=== PATIENT | female | born 1990 | race Caucasian/White ===

== ENCOUNTER 2017-03-10 21:19 | Inpatient (IN) | payer OTHER ==
[2017-03-10] MEDS ORDERED: LET GEL TOPICAL 1 EA SYR TP ONE (22:00)
--- NOTE | 2017-03-10 22:20 | EDPHY ---
H & P Source: Patient Time Seen by Provider: 03/10/17 22:19 HPI/ROS: HPI CHIEF COMPLAINT: M1 hold, self-inflicted arm lacerations, suicidal ideation HISTORY OF PRESENT ILLNESS: This patient very pleasant 18-year-old female she does have significant past medical history for bipolar disorder and depression, she is followed by outpatient psychiatry, she presents emergency room on M1 hold by BPD, she had self-inflicted lacerations to or in her forearms bilaterally with a razor blade. She tells me the purpose of this was to harm herself and to commit suicide. She is feeling suicidal. She is feeling worsening depression. She does take bipolar medications and pressure medication she has been compliant with this. She denies any drug ingestion or any other self-harm. Of note patient has lacerations on her distal forearms bilaterally that have sutures in place she tells me that 1 was self-inflicted on left arm on the right arm she was breaking up her dog from a dog fight sustained another laceration. These both were repaired at urgent care. She is on Augmentin. She now has new laceration self-inflicted. 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 Exam Constitutional appears well nontoxic triage nursing summary reviewed, vital signs reviewed, awake/alert. Eyes normal conjunctivae and sclera, EOMI, PERRLA. HENT normal inspection, atraumatic, moist mucus membranes, no epistaxis, neck supple/ no meningismus, no raccoon eyes. Respiratory clear to auscultation bilaterally, normal breath sounds, no respiratory distress, no wheezing. Cardiovascular rate normal, regular rhythm, no murmur, no edema, distal pulses normal. Gastrointestinal soft, non-tender, no rebound, no guarding, normal bowel sounds, no distension, no pulsatile mass. Genitourinary no CVA tenderness. Musculoskeletal no midline vertebral tenderness, full range of motion, no calf swelling, no tenderness of extremities, no meningismus, good pulses, neurovascularly intact. Skin bilateral forearms: There vertical oriented single lacerations present approximately 7 cm in length, also of note distally on bilateral forearms there is fresh recent lacerations that were sutured at an urgent care she tells me, pink, warm, & dry, no rash, skin atraumatic. Neurologic awake, alert and oriented x 3, AAOx3, moves all 4 extremities equally, motor intact, sensory intact, CN II-XII intact, normal cerebellar, normal vision, normal speech. Psychiatric flat affect Heme/Lymph/Immune no lymphadenopathy. Differential Diagnosis: Includes but is not limited to in a particular order, bipolar disorder, depression, suicidal ideation, mood disorder Medical Decision Making: Plan for this patient she will need her wounds cleaned and irrigated and then sutured closed. She will need mental health evaluation. She will need medical clearance. Blood work will be drawn for medical clearance. Re-evaluation: Laceration Repair Procedure: Verbal Consent was obtained, Under sterile conditions, The patient had lidocaine with epinephrine used approximately 7 ccs to local anesthetize the left forearm 7 cm vertical Laceration. The wound was copiously irrigated with sterile fluid, the wound was explored for foreign bodies there were none visualized, the wound was explored with a sterile glove to the base. There are no deep structures involved, including no arterial injury. 6 interrupted 6.O PROLENE Sutures were placed in this patient's laceration. She had good close approximation of the wound edges. She Tolerated this well. Laceration Repair Procedure: Verbal Consent was obtained, Under sterile conditions, The patient had lidocaine with epinephrine used approximately 7ccs to local anesthetize the 7cm Vertical Laceration. The wound was copiously irrigated with sterile fluid, the wound was explored for foreign bodies there were none visualized, the wound was explored with a sterile glove to the base. There are no deep structures involved, including no arterial injury. 6 interrupted 6.O Prolene Sutures were placed in this patient's laceration. She had good close approximation of the wound edges. She Tolerated this well. 0649AM: No acute events overnight. Patient needs inpatient psychiatric placement. Patient has been evaluated. Bed search is in place. (Nicola Coppola) Constitutional: Initial Vital Signs Temperature (C) 36.7 C 03/10/17 21:19 Heart Rate 63 03/10/17 21:19 Respiratory Rate 16 03/10/17 21:19 Blood Pressure 119/79 03/10/17 21:19 O2 Sat (%) 98 05/19/17 21:19 O2 Delivery Mode Room Air Allergies/Adverse Reactions: bee venom protein (honey bee) Allergy (Verified 03/11/17 12:29) grass pollen-perennial rye, standar Allergy (Verified 03/11/17 12:29) pollen extracts Allergy (Verified 03/11/17 12:28) Home Medications: Medication Instructions Recorded Levothyroxine [Synthroid 25 mcg 25 mcg PO DAILY06 03/10/17 (*)] buPROPion XL [Wellbutrin Xl] 300 mg PO DAILY 03/10/17 clonazePAM [Klonopin (*)] 0.5 mg PO TID 03/10/17 lamOTRIGine [Lamotrigine] 100 mg PO DAILY 03/10/17 EPINEPHrine [Epipen 0.3 MG] 0.3 mg IM ONCE PRN 03/11/17 Medical Decision Making Other Provider: I assumed care of the patient at 7:00 a.m. pending psychiatric placement. The patient was accepted for inpatient psychiatric hospitalization at [facility]. Patient has been transferred to our unit for further inpatient care (Joe Rodrigues) - Data Points Laboratory Results: Laboratory Results 03/10/17 21:00 03/10/17 21:00 03/10/17 21:00 Total Bilirubin 0.9 mg/dL mg/dL (0.1-1.4) Conjugated Bilirubin 0.5 mg/dL mg/dL (0.0-0.5) Unconjugated Bilirubin 0.4 mg/dL mg/dL (0.0-1.1) AST 33 IU/L IU/L (14-46) ALT 33 IU/L IU/L (9-52) Alkaline Phosphatase 63 IU/L IU/L (38-126) Total Protein 9.2 g/dL H g/dL (6.3-8.2) Albumin 5.2 g/dL H g/dL (3.5-5.0) TSH 2.430 uIU/mL uIU/mL (0.465-4.680) Medications Given: Discontinued Medications Acetaminophen (Tylenol) 1,000 mg PO EDNOW ONE Stop: 03/11/17 04:21 Last Admin: 03/11/17 04:30 Dose: 1,000 mg Ibuprofen (Motrin) 600 mg PO EDNOW ONE Stop: 03/11/17 04:21 Last Admin: 03/11/17 04:30 Dose: 600 mg Lorazepam (Ativan) 1 mg PO EDNOW ONE Stop: 03/10/17 23:53 Last Admin: 03/11/17 00:10 Dose: 1 mg Lorazepam (Ativan) 1 mg PO EDNOW ONE Stop: 03/11/17 04:21 Last Admin: 03/11/17 04:30 Dose: 1 mg Departure - Departure Disposition: [facility] IP Clinical Impression: Suicidal ideation, Laceration Depression Qualifiers: Depression Type: unspecified Qualified Code(s): F32.9 - Major depressive disorder, single episode, unspecified Condition: Fair
[2017-03-10 22:32] LABS: % IMMATURE GRANULYOCYTES 0.4 % (0.0-1.1); ABSOLUTE IMMATURE GRANULOCYTES 0.03 10^3/uL (0.00-0.10); ADD DIFF? NO; ADD MORPH? NO; ADD SCAN? NO; ATYPICAL LYMPHOCYTE FLAG 30 (0-99); FRAGMENT RBC FLAG 0 (0-99); HEMOGLOBIN 16.2 g/dL (12.6-16.3); LEFT SHIFT FLG 0 (0-99); LIPEMIA HEMOLYSIS FLAG 90 (0-99); MEAN CELL HEMOGLOBIN 34.4 pg (27.9-34.1); MEAN CELL HEMOGLOBIN CONCENTR. 35.2 g/dL (32.4-36.7); MEAN CELL VOLUME 97.7 fL (81.5-99.8); MEAN PLATELET VOLUME 11.8 fL (8.7-11.7); PLATELET CLUMPS FLAG 0 (0-99); PLATELET COUNT 264 10^3/uL (150-400); RED BLOOD CELL COUNT 4.71 10^6/uL (4.18-5.33); RED CELL DISTRIBUTION WIDTH 11.5 % (11.5-15.2)
[2017-03-10 22:39] LABS: ANION GAP 12 mEq/L (8-16); CALCIUM 10.1 mg/dL (8.5-10.4); CARBON DIOXIDE 27 mEq/l (22-31); CHLORIDE 103 mEq/L (97-110); ETHANOL SERUM < 10 mg/dL (0-10); GLOMERULAR FILTRATION RATE > 60; GLUCOSE 83 mg/dL (70-100); POTASSIUM 4.2 mEq/L (3.5-5.2); SALICYLATE < 1.0 mg/dL (2.0-20.0); SODIUM 142 mEq/L (134-144)
[2017-03-10] MEDS ORDERED: LORazepam 1 MG TAB PO ONE (23:52)
[2017-03-11 04:18] LABS: ALBUMIN 5.2 g/dL (3.5-5.0); BILIRUBIN,TOTAL 0.9 mg/dL (0.1-1.4); BILIRUBIN-CONJUGATED 0.5 mg/dL (0.0-0.5); BILIRUBIN-UNCONJUGATED 0.4 mg/dL (0.0-1.1); TOTAL PROTEIN 9.2 g/dL (6.3-8.2)
[2017-03-11] MEDS ORDERED: LORazepam 1 MG TAB PO ONE (04:20)
[2017-03-11] MEDS ORDERED: IBUPROFEN 600 MG TAB PO ONE (04:20)
[2017-03-11] MEDS ORDERED: ACETAMINOPHEN 500 MG TAB PO ONE (04:20)
[2017-03-11] MEDS ORDERED: NICOTINE POLACRILEX 2 MG GUM B PRN (11:53)
[2017-03-11] MEDS ORDERED: MAGNESIUM HYDROXIDE 30 ML UDCUP PO PRN (11:53)
[2017-03-11] MEDS ORDERED: MAG HYDROX/AL HYDROX/SIMETH 30 ML UDCUP PO PRN (11:53)
[2017-03-11] MEDS ORDERED: ACETAMINOPHEN 325 MG TAB PO PRN (11:53)
[2017-03-11] MEDS ORDERED: lamoTRIgine 100 MG TAB PO SCH (12:15)
[2017-03-11] MEDS ORDERED: ACETAMINOPHEN 500 MG TAB PO PRN (12:19)
[2017-03-11] MEDS: IBUPROFEN 600 MG TAB PO PRN (13:29)
[2017-03-11] MEDS: clonazePAM 0.5 MG TAB PO SCH ×2 (15:56→20:28)
[2017-03-11] MEDS: HYDROCORTISONE 1% CREAM TP PRN (20:28)
--- NOTE | 2017-03-11 22:12 | SOAPPROG ---
SOAP Progress Note Assessment/Plan: Assessment: 26yo CF with hx of depr/anxiety/BMD II admitted for 1st psych inpt s/p planned SA with lethal intent by HAKAN poole in tub after 3pg detailed suicide note in context of several recent on chronic traumas and more acute stressors as precipitant, after rehearsed cutting a few days earlier Interviewed at length. Continues to regret not succeeding in suicide attempt. Denies plan/intent to harm self in hosp, feels 1:1 would even worsen her anxiety she has already about being hospitalized. Will start on suicide precautions SP-1, cont 72hr MHH, unit restriction No acute subst use issues although with +fhx Etoh, and smokes some THC nightly with +Utox THC in ER Resume home meds, pt agreed to increase Lamictal from 100mg to 150mg qam Dx BMD II, depressed, severe Anxiety d/o, unspecified, r/o PTSD r/o Major Depr D/O s/p bilat self-inflicted forearm lacerations Admission Behavioral Health Dictation to follow. Objective: Vital Signs Temp Pulse Resp BP Pulse Ox 36.3 C 65 16 121/65 H 96 03/11/17 20:41 03/11/17 09:52 03/11/17 20:41 03/11/17 20:41 03/11/17 20:41 - Time Spent With Patient Time Spent With Patient: 90min - Pending Discharge Pending Discharge Within 24 Hours: No Pending Discharge Within 48 Hours: No ICD10 Worksheet Patient Problems: Problems Problem Status Onset Depression Acute Laceration Acute Suicidal ideation Acute
[2017-03-12] MEDS ORDERED: LEVOTHYROXINE 25 MCG TAB PO SCH ×2 (06:00→10:00)
[2017-03-12] MEDS ORDERED: buPROPion XL 150 MG TAB PO SCH (09:00)
[2017-03-12] MEDS: lamoTRIgine 100 MG TAB PO SCH (09:01)
[2017-03-12] MEDS: clonazePAM 0.5 MG TAB PO SCH ×3 (09:01→20:28)
[2017-03-12] MEDS: IBUPROFEN 600 MG TAB PO PRN ×2 (09:02→20:41)
[2017-03-12] MEDS: HYDROCORTISONE 1% CREAM TP PRN (09:03)
--- NOTE | 2017-03-12 09:58 | GCON ---
[f rep st] CONSULTATION DATE OF CONSULTATION: 03/12/2017 HISTORY OF PRESENT ILLNESS: The patient is a pleasant 26-year-old female with a history of depressi on and anxiety who presents to the ER a couple nights ago with bipolar disorder and cutting behavior . She had sutures placed in the ER. When I speak with her, she denies other significant medical problems. She has hypothyroidism and mi graine. She has identified her triggers. She is pleasant and conversant. She denies recent fever, chills, cough, shortness of breath, nausea, vomiting, diarrhea. She denies drinking heavy alcohol. REVIEW OF SYSTEMS: Complete 10-point review of systems conducted and negative, except as in HPI. PAST MEDICAL HISTORY: 1. Bipolar. 2. Hypothyroidism. 3. Migraines. 4. Triggers are chocolate, red wine, soy sauce. 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 Tri-athlete. FAMILY HISTORY: Notable for cancer and diabetes. ALLERGIES: Bee venom, grass, pollen extracts. HOME MEDICATIONS: Lamotrigine, clonazepam, bupropion, levothyroxine, and EpiPen. PHYSICAL EXAM: VITAL SIGNS: Temp 36.7, blood pressure 115/61, pulse 67, breathing 14 times a minut e, 97% on room air. GENERAL: No acute distress. HEENT: Sclerae anicteric. Oropharynx clear. Mu cous membranes moist. NECK: Supple without lymphadenopathy or JVD. LUNGS: Clear to auscultation bilaterally. HEART: S1, S2. ABDOMEN: Soft, nontender, nondistended. LOWER EXTREMITIES: Without edema. Calves nontender. SKIN: Without rash. NEUROLOGIC: Nonfocal. FOREARMS: Show bilateral i ncisions; on the right forearm there is one incision that is sutured, clean, dry and intact without fluctuance or erythema; there is one that is Steri-Stripped that is clean, dry, intact without fluct uance or erythema. On the left, there are 2 sutured incisions that are clean, dry and intact withou t fluctuance or erythema. Her flexor tendons are intact bilaterally without pain with forced flexio n of her fingers. There is no lymphangitic streaking. LABORATORY DATA: Labs on presentation: White count 8.3, hematocrit 46, platelets are 264,000. Chem-7 normal. LFTs normal. Beta hCG is negative. Tox screen is negative for marijuana. There is no imaging. I discussed the case with Dr. Stephanie Blanc. ASSESSMENT/PLAN: This is a 26-year-old female with bipolar, here with cutting behavior. 1. Incisions: These are clean, dry and intact. The sutures were placed on Monday the ey should be removed somewhere between Monday the and Monday the . This can be done by a nurse at the bedside with a suture removal kit. 2. Bipolar: Management per Psych. 3. Hypothyroidism: Continue her levothyroxine, as you have. 4. Disposition: Per Psych. Thank you for this consultation. Hospital Medicine will not follow. /[id number]/MODL
[2017-03-12] MEDS: ESCITALOPRAM OXALATE 10 MG TAB PO SCH (16:54)
[2017-03-12] MEDS: LORazepam 0.5 MG TAB PO PRN (22:08)
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
[2017-03-13] MEDS ORDERED: LEVOTHYROXINE 25 MCG TAB PO SCH (06:45)
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
[2017-03-13] MEDS: lamoTRIgine 100 MG TAB PO SCH (08:38)
[2017-03-13] MEDS: clonazePAM 0.5 MG TAB PO SCH ×3 (08:40→21:45)
[2017-03-13] MEDS: ESCITALOPRAM OXALATE 10 MG TAB PO SCH (08:41)
[2017-03-13] MEDS: IBUPROFEN 600 MG TAB PO PRN ×2 (08:52→17:39)
[2017-03-13] MEDS ORDERED: buPROPion XL 150 MG TAB PO SCH (09:00)
[2017-03-13] MEDS ORDERED: SUMAtriptan 25 MG TAB PO ONE (14:45)
[2017-03-13] MEDS ORDERED: SUMAtriptan 50 MG TAB PO SCH (14:45)
[2017-03-13] MEDS ORDERED: SUMAtriptan 25 MG TAB PO SCH (15:00)
[2017-03-13] MEDS ORDERED: EPIPEN IM PRN ×2 (15:08→15:12)
[2017-03-13] MEDS: LORazepam 0.5 MG TAB PO PRN (19:58)
[2017-03-14] MEDS: IBUPROFEN 600 MG TAB PO PRN ×2 (03:39→14:43)
[2017-03-14] MEDS: LORazepam 0.5 MG TAB PO PRN ×2 (03:52→16:31)
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
[2017-03-14] MEDS ORDERED: SUMAtriptan 50 MG TAB PO ONE (08:20)
[2017-03-14] MEDS: ESCITALOPRAM OXALATE 10 MG TAB PO SCH (08:22)
[2017-03-14] MEDS: lamoTRIgine 100 MG TAB PO SCH (08:23)
[2017-03-14] MEDS: LEVOTHYROXINE 25 MCG TAB PO SCH (08:25)
[2017-03-14] MEDS: clonazePAM 0.5 MG TAB PO SCH ×3 (08:25→20:15)
[2017-03-14] MEDS ORDERED: SUMAtriptan 25 MG TAB PO ONE (09:15)
[2017-03-14] MEDS: buPROPion XL 150 MG TAB PO SCH (10:42)
--- NOTE | 2017-03-14 12:43 | SOAPPROG ---
SOAP Progress Note Assessment/Plan: Assessment: Lacerations, sutures. OK to remove sutures from older lacerations. Plan: 03/14/17 12:42 Subjective: ATSP re sutures one week ago. Also has more recent sutures. Objective: Vital Signs Temp Pulse Resp BP Pulse Ox 36.6 C 60 16 137/92 H 95 03/14/17 06:00 03/14/17 06:00 03/14/17 06:00 03/14/17 06:00 03/14/17 06:00 Physical Exam - Physical Exam Skin: other (Each wrist with 2 lacerations, older and newer. Older fully approximated and closed. Newer with eschar.) ICD10 Worksheet Patient Problems: Problems Problem Status Onset Depression Acute Laceration Acute Suicidal ideation Acute
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
[2017-03-14] MEDS ORDERED: SUMAtriptan 25 MG TAB PO PRN (14:44)
[2017-03-15] MEDS: lamoTRIgine 100 MG TAB PO SCH (08:26)
[2017-03-15] MEDS: clonazePAM 0.5 MG TAB PO SCH ×3 (08:28→20:05)
[2017-03-15] MEDS: ESCITALOPRAM OXALATE 10 MG TAB PO SCH (08:28)
[2017-03-15] MEDS: buPROPion XL 150 MG TAB PO SCH (08:28)
[2017-03-15] MEDS: LEVOTHYROXINE 25 MCG TAB PO SCH (08:38)
[2017-03-15] MEDS: IBUPROFEN 600 MG TAB PO PRN (14:40)
[2017-03-16] MEDS: LORazepam 0.5 MG TAB PO PRN ×2 (00:29→21:18)
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
[2017-03-16] MEDS: lamoTRIgine 100 MG TAB PO SCH (08:09)
[2017-03-16] MEDS: ESCITALOPRAM OXALATE 10 MG TAB PO SCH (08:10)
[2017-03-16] MEDS: clonazePAM 0.5 MG TAB PO SCH ×3 (08:12→21:18)
[2017-03-16] MEDS: buPROPion XL 150 MG TAB PO SCH (08:13)
[2017-03-16] MEDS: LEVOTHYROXINE 25 MCG TAB PO SCH (08:19)
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
[2017-03-16] MEDS ORDERED: PRAZOSIN HCL 1 MG CAP PO SCH (21:00)
[2017-03-17] MEDS: LORazepam 0.5 MG TAB PO PRN ×2 (06:10→23:18)
[2017-03-17] MEDS: clonazePAM 0.5 MG TAB PO SCH ×3 (09:01→20:47)
[2017-03-17] MEDS: lamoTRIgine 100 MG TAB PO SCH (10:32)
[2017-03-17] MEDS: LEVOTHYROXINE 25 MCG TAB PO SCH (10:33)
[2017-03-17] MEDS: ESCITALOPRAM OXALATE 10 MG TAB PO SCH (10:34)
[2017-03-17] MEDS: buPROPion XL 150 MG TAB PO SCH (10:35)
[2017-03-17] MEDS: IBUPROFEN 600 MG TAB PO PRN (16:07)
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
[2017-03-17] MEDS: traZODone 50 MG TAB PO SCH (20:47)
[2017-03-17] MEDS: traZODone 50 MG TAB PO PRN (23:18)
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
[2017-03-18] MEDS: ESCITALOPRAM OXALATE 10 MG TAB PO SCH (08:41)
[2017-03-18] MEDS: buPROPion XL 150 MG TAB PO SCH (08:41)
[2017-03-18] MEDS: clonazePAM 0.5 MG TAB PO SCH ×4 (08:42→20:09)
[2017-03-18] MEDS: lamoTRIgine 100 MG TAB PO SCH (08:42)
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
[2017-03-18] MEDS: LEVOTHYROXINE 25 MCG TAB PO SCH (10:56)
[2017-03-18] MEDS ORDERED: PRAZOSIN HCL 1 MG CAP PO SCH (11:00)
[2017-03-18] MEDS ORDERED: PRAZOSIN HCL 1 MG CAP PO ONE (11:45)
[2017-03-18] MEDS: traZODone 50 MG TAB PO PRN (20:09)
[2017-03-18] MEDS: PRAZOSIN HCL 1 MG CAP PO SCH (20:09)
[2017-03-18] MEDS: traZODone 50 MG TAB PO SCH (20:09)
[2017-03-18] MEDS: LORazepam 0.5 MG TAB PO PRN (20:09)
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
[2017-03-19] MEDS: ESCITALOPRAM OXALATE 10 MG TAB PO SCH (09:29)
[2017-03-19] MEDS: LEVOTHYROXINE 25 MCG TAB PO SCH (09:29)
[2017-03-19] MEDS: buPROPion XL 150 MG TAB PO SCH (09:30)
[2017-03-19] MEDS: clonazePAM 0.5 MG TAB PO SCH ×3 (09:30→21:06)
[2017-03-19] MEDS: lamoTRIgine 100 MG TAB PO SCH (09:31)
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
[2017-03-19] MEDS: IBUPROFEN 600 MG TAB PO PRN (15:02)
[2017-03-19] MEDS: HYDROCORTISONE 1% CREAM TP PRN (18:25)
[2017-03-19] MEDS: LORazepam 0.5 MG TAB PO PRN (21:05)
[2017-03-19] MEDS: PRAZOSIN HCL 1 MG CAP PO SCH (21:06)
[2017-03-19] MEDS: traZODone 50 MG TAB PO SCH (21:06)
[2017-03-19] MEDS: traZODone 50 MG TAB PO PRN (21:06)
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
[2017-03-20] MEDS: ESCITALOPRAM OXALATE 10 MG TAB PO SCH (08:57)
[2017-03-20] MEDS: clonazePAM 0.5 MG TAB PO SCH ×3 (08:57→20:25)
[2017-03-20] MEDS: buPROPion XL 150 MG TAB PO SCH (08:58)
[2017-03-20] MEDS: lamoTRIgine 100 MG TAB PO SCH (08:58)
[2017-03-20] MEDS: LEVOTHYROXINE 25 MCG TAB PO SCH (11:09)
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
[2017-03-20] MEDS: traZODone 50 MG TAB PO SCH (20:25)
[2017-03-20] MEDS: PRAZOSIN HCL 1 MG CAP PO SCH (20:25)
[2017-03-20] MEDS: LORazepam 0.5 MG TAB PO PRN (20:28)
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
[2017-03-21 06:37] VITALS: RESP 12
[2017-03-21 07:55] VITALS: BP 106/63; PULSE 72; TEMP 97.6; O2SAT 96
[2017-03-21] MEDS: ESCITALOPRAM OXALATE 10 MG TAB PO SCH (10:19)
[2017-03-21] MEDS: buPROPion XL 150 MG TAB PO SCH (10:20)
[2017-03-21] MEDS: clonazePAM 0.5 MG TAB PO SCH (10:20)
[2017-03-21] MEDS: lamoTRIgine 100 MG TAB PO SCH (10:21)
[2017-03-21] MEDS: LEVOTHYROXINE 25 MCG TAB PO SCH (10:24)
[2017-03-21] MEDS ORDERED: HYDROCORTISONE 1% CREAM TP PRN (12:53)
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
== END 2017-03-21 15:15 | disposition home or self-care (01) | DRG 885 ==
LOC: EDUNIT# → EDBD → BBEH 03-11 09:56
PROVIDERS: ADMIT Psychiatry & Neurology Psychiatry; ATTEND Psychiatry & Neurology Psychiatry
PROC: 0HQEXZZ Repair Left Lower Arm Skin, External Approach (ICD-10-PCS; principal; 2017-03-11)
PROC: 0HQDXZZ Repair Right Lower Arm Skin, External Approach (ICD-10-PCS; principal; 2017-03-11)
DX: F33.9 Major depressive disorder, recurrent, unspecified (principal); F43.10 Post-traumatic stress disorder, unspecified; T14.91 Suicide attempt; S61.512A Laceration without foreign body of left wrist, initial encounter; S61.511A Laceration without foreign body of right wrist, initial encounter; E03.9 Hypothyroidism, unspecified; G43.909 Migraine, unspecified, not intractable, without status migrainosus; X58.XXXA Exposure to other specified factors, initial encounter
CPT/HCPCS: 80305; G0480

== ENCOUNTER 2017-05-09 12:41 | Emergency (ER) | payer OTHER ==
--- NOTE | 2017-05-09 12:49 | EDPHY ---
H & P HPI/ROS: HPI CHIEF COMPLAINT: M1 hold, depression HISTORY OF PRESENT ILLNESS: This patient is a 26-year-old female , significant past medical history for self-inflicted cutting, and depression, presents emergency room by ambulance on M1 hold after she was seen evaluated by her mental health counselor. She is having a bad day she tells me in feels very depressed. Had thoughts of suicide earlier but no specific plan. Past Medical History: Depression Past Surgical History: No recent surgical history Social History: Denies daily use of drugs alcohol tobacco products. Family History: Noncontributory ROS REVIEW OF SYSTEMS: A comprehensive 10 point review of systems is otherwise negative aside from elements mentioned in the history of present illness. Exam Constitutional triage nursing summary reviewed, vital signs reviewed, awake/ alert. Eyes normal conjunctivae and sclera, EOMI, PERRLA. HENT normal inspection, atraumatic, moist mucus membranes, no epistaxis, neck supple/ no meningismus, no raccoon eyes. Respiratory clear to auscultation bilaterally, normal breath sounds, no respiratory distress, no wheezing. Cardiovascular rate normal, regular rhythm, no murmur, no edema, distal pulses normal. Gastrointestinal soft, non-tender, no rebound, no guarding, normal bowel sounds, no distension, no pulsatile mass. Genitourinary no CVA tenderness. Musculoskeletal no midline vertebral tenderness, full range of motion, no calf swelling, no tenderness of extremities, no meningismus, good pulses, neurovascularly intact. Skin pink, warm, & dry, no rash, skin atraumatic. Neurologic awake, alert and oriented x 3, AAOx3, moves all 4 extremities equally, motor intact, sensory intact, CN II-XII intact, normal cerebellar, normal vision, normal speech. Psychiatric tearful, flat affect Heme/Lymph/Immune no lymphadenopathy. Differential Diagnosis: Includes but is not limited to in a particular order depression, suicidal ideation, major depressive disorder Medical Decision Making: Plan for this patient she is on M1 hold she will need medical clearance with blood draw, and mental evaluation. Re-evaluation: 163: This patient has been evaluated by [facility]. Patient is medically cleared. They do not feel that this patient is to remain on M1 hold she is not suicidal. She contracts for safety. She would like to be discharged home. She has a safe environment and good follow-up plan in place. Source: Patient, EMS - Medical/Surgical History Hx Asthma: No Hx Chronic Respiratory Disease: No Hx Diabetes: No Hx Cardiac Disease: No Hx Renal Disease: No Hx Cirrhosis: No Hx Alcoholism: No Hx HIV/AIDS: No Hx Splenectomy or Spleen Trauma: No Other PMH: anxiety, depression, hypothyroidism, seasonal allergies - Social History Smoking Status: Never smoked Constitutional: Initial Vital Signs Temperature (C) 37.1 C 05/09/17 12:56 Heart Rate 82 05/09/17 12:56 Respiratory Rate 18 05/09/17 12:56 Blood Pressure 126/90 H 05/09/17 12:56 O2 Sat (%) 95 05/09/17 12:56 O2 Delivery Mode Room Air Allergies/Adverse Reactions: bee venom protein (honey bee) Allergy (Verified 03/11/17 12:29) grass pollen-perennial rye, standar Allergy (Verified 03/11/17 12:29) pollen extracts Allergy (Verified 03/11/17 12:28) Home Medications: Medication Instructions Recorded EPINEPHrine [Epipen 0.3 MG] 0.3 mg IM ONCE PRN #7 syr 03/21/17 Escitalopram Oxalate [Lexapro 10 5 mg PO DAILY #14 tab 03/21/17 MG] Hydrocortisone 1% [Hydrocortisone 1 kelsey TP BID PRN #60 cream 03/21/17 1% cream (*)] Levothyroxine [Synthroid 25 mcg 25 mcg PO DAILY06 #30 tab 03/21/17 (*)] Prazosin HCl [Minipress 1mg (*)] 2 mg PO HS #60 cap 03/21/17 SUMAtriptan [Imitrex 25 MG (*)] 100 mg PO DAILY PRN #30 tab 03/21/17 buPROPion XL [Wellbutrin 150mg XL] 300 mg PO DAILY #60 tab 03/21/17 clonazePAM [Klonopin (*)] 0.5 mg PO TID #90 tab 03/21/17 lamoTRIgine [LamICTAL 100 MG (*)] 150 mg PO DAILY #45 tab 03/21/17 traZODone [traZODONE 50MG (*)] 50 mg PO HS #30 tab 03/21/17 Medical Decision Making - Data Points Laboratory Results: Laboratory Results 05/09/17 13:17 05/09/17 13:17 05/09/17 05/09/17 05/09/17 14:30 13:17 13:17 WBC RBC Hgb Hct MCV MCH MCHC RDW Plt Count MPV Neut % (Auto) Lymph % (Auto) [place] % (Auto) Eos % (Auto) Baso % (Auto) Nucleat RBC Rel Count Absolute Neuts (auto) Absolute Lymphs (auto) Absolute Monos (auto) Absolute Eos (auto) Absolute Basos (auto) Absolute Nucleated RBC Immature Gran % Immature Gran # Sodium 143 mEq/L mEq/L (134-144) Potassium 4.2 mEq/L mEq/L (3.5-5.2) Chloride 108 mEq/L mEq/L (97-110) Carbon Dioxide 22 mEq/l mEq/l (22-31) Anion Gap 13 mEq/L mEq/L (8-16) BUN 11 mg/dL mg/dL (7-23) Creatinine 1.0 mg/dL mg/dL (0.6-1.0) Estimated GFR > 60 Glucose 84 mg/dL mg/dL (70-100) Calcium 9.7 mg/dL mg/dL (8.5-10.4) Beta HCG, Qual NEGATIVE Salicylates < 1.0 mg/dL L mg/dL (2.0-20.0) Urine Opiates Screen NEGATIVE (NEGATIVE) Acetaminophen < 10 mcg/mL L mcg/mL (10.0-30.0) Urine Barbiturates NEGATIVE (NEGATIVE) Ur Phencyclidine Scrn NEGATIVE (NEGATIVE) Ur Amphetamine Screen NEGATIVE (NEGATIVE) U Benzodiazepines Scrn NEGATIVE (NEGATIVE) Urine Cocaine Screen NEGATIVE (NEGATIVE) U Marijuana (THC) Screen NON-NEGATIVE H (NEGATIVE) Ethyl Alcohol < 10 mg/dL mg/dL (0-10) 05/09/17 13:17 WBC 8.39 10^3/uL 10^3/uL (3.80-9.50) RBC 4.37 10^6/uL 10^6/uL (4.18-5.33) Hgb 14.8 g/dL g/dL (12.6-16.3) Hct 43.3 % % (38.0-47.0) MCV 99.1 fL fL (81.5-99.8) MCH 33.9 pg pg (27.9-34.1) MCHC 34.2 g/dL g/dL (32.4-36.7) RDW 12.8 % % (11.5-15.2) Plt Count 291 10^3/uL 10^3/uL (150-400) MPV 10.8 fL fL (8.7-11.7) Neut % (Auto) 54.6 % % (39.3-74.2) Lymph % (Auto) 35.9 % % (15.0-45.0) [place] % (Auto) 7.9 % % (4.5-13.0) Eos % (Auto) 0.6 % % (0.6-7.6) Baso % (Auto) 0.5 % % (0.3-1.7) Nucleat RBC Rel Count 0.0 % % (0.0-0.2) Absolute Neuts (auto) 4.59 10^3/uL 10^3/uL (1.70-6.50) Absolute Lymphs (auto) 3.01 10^3/uL H 10^3/uL (1.00-3.00) Absolute Monos (auto) 0.66 10^3/uL 10^3/uL (0.30-0.80) Absolute Eos (auto) 0.05 10^3/uL 10^3/uL (0.03-0.40) Absolute Basos (auto) 0.04 10^3/uL 10^3/uL (0.02-0.10) Absolute Nucleated RBC 0.00 10^3/uL 10^3/uL (0-0.01) Immature Gran % 0.5 % % (0.0-1.1) Immature Gran # 0.04 10^3/uL 10^3/uL (0.00-0.10) Sodium Potassium Chloride Carbon Dioxide Anion Gap BUN Creatinine Estimated GFR Glucose Calcium Beta HCG, Qual Salicylates Urine Opiates Screen Acetaminophen Urine Barbiturates Ur Phencyclidine Scrn Ur Amphetamine Screen U Benzodiazepines Scrn Urine Cocaine Screen U Marijuana (THC) Screen Ethyl Alcohol Medications Given: Discontinued Medications Lorazepam (Ativan) 1 mg PO EDNOW ONE Stop: 05/09/17 13:07 Last Admin: 05/09/17 13:15 Dose: 1 mg Departure - Departure Disposition: Home, Routine, Self-Care Clinical Impression: Depression Qualifiers: Depression Type: major depressive disorder Major depression recurrence: single episode Active/Remission status: currently active Major depression episode severity: mild Qualified Code(s): F32.0 - Major depressive disorder, single episode, mild Condition: Good Instructions: Depression (ED) Additional Instructions: 1. Return emergency room if you have worsening symptoms includes worsening depression and thoughts of hurting herself or anybody else or thoughts of suicide. Please return immediately to the emergency room. Referrals: Patient,NotPresent [Unknown] - As per Instructions
[2017-05-09 13:06] VITALS: BP 126/90; PULSE 82; RESP 18; TEMP 98.8; O2SAT 95
[2017-05-09] MEDS ORDERED: LORazepam 1 MG TAB PO ONE ×2 (13:06→16:42)
[2017-05-09 13:25] LABS: % IMMATURE GRANULYOCYTES 0.5 % (0.0-1.1); ABSOLUTE IMMATURE GRANULOCYTES 0.04 10^3/uL (0.00-0.10); ADD DIFF? NO; ADD MORPH? NO; ADD SCAN? NO; ATYPICAL LYMPHOCYTE FLAG 10 (0-99); FRAGMENT RBC FLAG 0 (0-99); HEMATOCRIT 43.3 % (38.0-47.0); HEMOGLOBIN 14.8 g/dL (12.6-16.3); LEFT SHIFT FLG 0 (0-99); LIPEMIA HEMOLYSIS FLAG 90 (0-99); MEAN CELL HEMOGLOBIN 33.9 pg (27.9-34.1); MEAN CELL HEMOGLOBIN CONCENTR. 34.2 g/dL (32.4-36.7); MEAN CELL VOLUME 99.1 fL (81.5-99.8); MEAN PLATELET VOLUME 10.8 fL (8.7-11.7); PLATELET CLUMPS FLAG 0 (0-99); PLATELET COUNT 291 10^3/uL (150-400); RED BLOOD CELL COUNT 4.37 10^6/uL (4.18-5.33); RED CELL DISTRIBUTION WIDTH 12.8 % (11.5-15.2)
[2017-05-09 13:45] LABS: ANION GAP 13 mEq/L (8-16); CALCIUM 9.7 mg/dL (8.5-10.4); CARBON DIOXIDE 22 mEq/l (22-31); CHLORIDE 108 mEq/L (97-110); ETHANOL SERUM < 10 mg/dL (0-10); GLOMERULAR FILTRATION RATE > 60; GLUCOSE 84 mg/dL (70-100); POTASSIUM 4.2 mEq/L (3.5-5.2); SALICYLATE < 1.0 mg/dL (2.0-20.0); SODIUM 143 mEq/L (134-144)
== END 2017-05-09 17:10 | disposition home or self-care (01) ==
LOC: EDUNIT#
DX: F32.0 Major depressive disorder, single episode, mild (principal)
CPT/HCPCS: 80305; G0480

== ENCOUNTER 2017-06-07 16:00 | Inpatient (IN) | payer OTHER ==
[2017-06-07] MEDS ORDERED: NS 1,000 ML IV ONE (16:07)
--- NOTE | 2017-06-07 16:11 | EDPHY ---
H & P Source: Patient Exam Limitations: No limitations - Personal History Tetanus Vaccine Date: 2009 - Medical/Surgical History Hx Asthma: No Hx Chronic Respiratory Disease: No Hx Diabetes: No Hx Cardiac Disease: No Hx Renal Disease: No Hx Cirrhosis: No Hx Alcoholism: No Hx HIV/AIDS: No Hx Splenectomy or Spleen Trauma: No Other PMH: anxiety, depression, hypothyroidism, seasonal allergies - Family History Significant Family History: No pertinent family hx - Social History Smoking Status: Never smoked Alcohol Use: Occasionally Drug Use: Other Time Seen by Provider: 06/07/17 16:00 HPI/ROS: CHIEF COMPLAINT: Suicide attempt HISTORY OF PRESENT ILLNESS: The patient is a 26-year-old female who is brought in by EMS for suicide attempt. She texted friends telling them that she was going to trying to kill herself. They could not get a hold of her and so called police who found her unresponsive with bilateral arm lacerations. She admitted to EMS that she took 20 tablets of trazodone, 20 tablets of 0.5 Klonopin and 20 tablets of aspirin. She tells me that she did not know when she did this but sometime this afternoon. She has not vomited. EMS reports that she had a moderate response to 2 mg of Narcan. She has 6 cm lacerations to both forearms palmar aspect with moderate bleeding but no arterial bleeding. Normal range of motion and sensation and pulses distally. REVIEW OF SYSTEMS: Unable to obtain secondary to condition EXAM: GENERAL: Somnolecent, arousable HEAD: Atraumatic, normocephalic. EYES: Pupils equal round and reactive to light, extraocular movements intact, sclera anicteric, conjunctiva are normal. ENT: TMs normal, nares patent, oropharynx clear without exudates. Moist mucous membranes. NECK: Normal range of motion, supple without lymphadenopathy or JVD. LUNGS: Breath sounds clear to auscultation bilaterally and equal. No wheezes rales or rhonchi. HEART: Regular rate and rhythm without murmurs, rubs or gallops. ABDOMEN: Soft, nontender, normoactive bowel sounds. No guarding, no rebound. No masses appreciated. BACK: No CVA tenderness, no spinal tenderness, step-offs or deformities EXTREMITIES: Laceration see below NEUROLOGICAL: Cranial nerves II through XII grossly intact. Normal speech, normal gait. 5/5 strength, normal movement in all extremities, normal sensation PSYCH: Somnolecent, minimal response to questioning SKIN: 6 cm lacerations to both forearms over palmar aspect. Into the fatty tissue. No obvious tendon or vascular injury seen with examination through full range of motion. Normal pulses and capillary refill distally. (Josue Hooker) Constitutional: Initial Vital Signs Heart Rate 61 06/07/17 16:14 Respiratory Rate 14 06/07/17 16:14 Blood Pressure 116/77 06/07/17 16:14 O2 Sat (%) 99 06/07/17 16:14 O2 Delivery Mode Room Air Allergies/Adverse Reactions: bee venom protein (honey bee) Allergy (Verified 03/11/17 12:29) grass pollen-perennial rye, standar Allergy (Verified 03/11/17 12:29) pollen extracts Allergy (Verified 03/11/17 12:28) Home Medications: Medication Instructions Recorded EPINEPHrine [Epipen 0.3 MG] 0.3 mg IM ONCE PRN #7 syr 03/21/17 Hydrocortisone 1% [Hydrocortisone 1 kelsey TP BID PRN #60 cream 03/21/17 1% cream (*)] Levothyroxine [Synthroid 25 mcg 25 mcg PO DAILY06 #30 tab 03/21/17 (*)] Prazosin HCl [Minipress 1mg (*)] 2 mg PO HS #60 cap 03/21/17 SUMAtriptan [Imitrex 25 MG (*)] 100 mg PO DAILY PRN #30 tab 03/21/17 buPROPion XL [Wellbutrin 150mg XL] 300 mg PO DAILY #60 tab 03/21/17 clonazePAM [Klonopin (*)] 0.5 mg PO TID #90 tab 03/21/17 traZODone [traZODONE 50MG (*)] 50 mg PO HS #30 tab 03/21/17 ARIPiprazole [Abilify 5 mg (*)] 5 mg PO DAILY 06/07/17 Escitalopram Oxalate [Lexapro 10 20 mg PO DAILY 06/08/17 MG] lamoTRIgine [Lamictal] 300 mg PO DAILY 06/08/17 Medical Decision Making - Diagnostics EKG Interpretation: An EKG obtained and was read and documented in trace view. Please see trace view for full reading and report. Sinus rhythm, no acute ischemic changes or interval abnormalities (Josue Hooker) Procedures: I was asked by Dr. Josue Hooker to the where the lacerations on the patient's upper extremities. Laceration repair #1. Verbal consent was obtained from the patient. The 6 cm laceration on the right volar forearm was anesthetized using 1% lidocaine with epinephrine. The wound was irrigated with saline, draped and explored to its base with a gloved finger. There were no deep structures involved. No tendon injury was identified. The wound was repaired with 4 0 Ethilon, 11 sutures. The wound repair was complex. The procedure was performed by myself. Laceration repair #2. Verbal consent was obtained from the patient. The 6 cm laceration on the left volar forearm was anesthetized using 1% lidocaine with epinephrine. The wound was irrigated with saline, draped and explored to its base with a gloved finger. There were no deep structures involved. No tendon injury was identified. The wound was repaired with 4 0 Ethilon, 11 sutures. The wound repair was complex. The procedure was performed by myself. Laceration repair #3. Verbal consent was obtained from the patient. The 2 cm forearm laceration on the location was anesthetized using 1% lidocaine with epinephrine. The wound was irrigated with saline, draped and explored to its base with a gloved finger. There were no deep structures involved. No tendon injury was identified. The wound was repaired with 4 0 Ethilon, 2 sutures. The wound repair was simple. The procedure was performed by myself. (Adamaris Solorzano) ED Course/Re-evaluation: 4:45 p.m. I discussed the case with poison Control. They suggest a cm and half in level every 2 hours looking for a peak and decline. If she has greater than 30 we should start a bicarb drip. They recommend observation for 6 hours after the ingestion of trazodone for serotonin syndrome type symptoms or seizures. If sicker to treat with benzodiazepines. Patient currently has stable vital signs and is somnolecent but easily arousable. Poison Control [id number] 6:10 p.m. the patient remains somnolecent with stable vital signs. No signs of serotonin syndrome. Her aspirin level is elevated but not greater than 30. I will recheck it. I have discussed the case with Dr. uptake who will admit to the ICU. The patient is on an M1 hold placed by police. (Josue Hooker) Differential Diagnosis: Partial list of the Differential diagnosis considered include but were not limited to; overdose, laceration, suicidality, depression and although unlikely based on the history and physical exam, I also considered infection, foreign body, head injury. (Josue Hooker) Critical Care Time: Critical care time spent by meDr. Hooker exclusive with this patient was 35 minutes, exclusive of the PA time exclusive of procedures. The organ system that was at risk was cardiovascular and GI and I gave diagnosis, treatment, consultation and admission to prevent worsening of the patient's condition ( Josue Hooker) - Data Points Laboratory Results: Laboratory Results 06/07/17 16:50 06/07/17 16:50 Medications Given: Discontinued Medications Acetaminophen (Tylenol) 650 mg PO Q4HRS PRN PRN Reason: Pain, Mild/Fever, Can Take PO Stop: 12/04/17 19:09 Last Admin: 06/07/17 22:08 Dose: 650 mg Aripiprazole (Abilify) 5 mg PO DAILY [facility] Stop: 12/05/17 08:59 Last Admin: 06/08/17 08:17 Dose: 5 mg Bupropion HCl (Wellbutrin Xl) 300 mg PO DAILY [facility] Stop: 12/05/17 08:59 Last Admin: 06/08/17 08:17 Dose: 300 mg Escitalopram Oxalate (Lexapro) 5 mg PO DAILY [facility] Stop: 12/05/17 08:59 Last Admin: 06/08/17 10:22 Dose: Not Given Escitalopram Oxalate (Lexapro) 20 mg PO DAILY [facility] Stop: 12/05/17 10:29 Last Admin: 06/08/17 11:02 Dose: 20 mg Sodium Chloride (Ns) 1,000 mls @ 0 mls/hr IV ONCE ONE; Wide Open PRN Reason: Protocol Stop: 06/07/17 16:08 Last Admin: 06/07/17 16:48 Dose: 1,000 mls Sodium Chloride (Ns) 1,000 mls @ 150 mls/hr IV CONT [facility] Stop: 12/04/17 19:14 Last Admin: 06/07/17 21:42 Dose: 1,000 mls Lamotrigine (Lamictal) 150 mg PO DAILY [facility] Stop: 12/05/17 08:59 Last Admin: 06/08/17 10:23 Dose: Not Given Lamotrigine (Lamictal) 300 mg PO DAILY [facility] Stop: 12/05/17 08:59 Last Admin: 06/08/17 11:10 Dose: Not Given Lamotrigine (Lamictal) 300 mg PO DAILY [facility] Stop: 12/05/17 10:59 Last Admin: 06/08/17 11:03 Dose: 300 mg Levothyroxine Sodium (Synthroid) 25 mcg PO DAILY06 [facility] Stop: 12/05/17 05:59 Last Admin: 06/08/17 06:11 Dose: 25 mcg Miscellaneous Medication (Lamotrigine [Lamictal]) 300 mg PO DAILY [facility] Stop: 12/05/17 10:29 Last Admin: 06/08/17 11:10 Dose: Not Given Prazosin HCl (Minipress) 2 mg PO HS [facility] Stop: 12/04/17 20:59 Last Admin: 06/07/17 22:08 Dose: 2 mg Tramadol HCl (Ultram) 50 mg PO Q6 PRN PRN Reason: Pain, Moderate Able to Take PO Stop: 12/05/17 10:45 Last Admin: 06/08/17 11:03 Dose: 50 mg Departure - Departure Disposition: [facility] Clinical Impression: Suicidal ideation, Laceration Intentional aspirin overdose Qualifiers: Encounter type: initial encounter Qualified Code(s): T39.012A - Poisoning by aspirin, intentional self-harm, initial encounter Condition: Fair
[2017-06-07 17:05] LABS: % IMMATURE GRANULYOCYTES 0.3 % (0.0-1.1); ABSOLUTE IMMATURE GRANULOCYTES 0.03 10^3/uL (0.00-0.10); ADD DIFF? NO; ADD MORPH? NO; ADD SCAN? NO; ATYPICAL LYMPHOCYTE FLAG 20 (0-99); FRAGMENT RBC FLAG 0 (0-99); HEMATOCRIT 38.2 % (38.0-47.0); HEMOGLOBIN 13.8 g/dL (12.6-16.3); LEFT SHIFT FLG 0 (0-99); LIPEMIA HEMOLYSIS FLAG 90 (0-99); MEAN CELL HEMOGLOBIN 34.8 pg (27.9-34.1); MEAN CELL HEMOGLOBIN CONCENTR. 36.1 g/dL (32.4-36.7); MEAN CELL VOLUME 96.5 fL (81.5-99.8); MEAN PLATELET VOLUME 10.7 fL (8.7-11.7); PLATELET CLUMPS FLAG 10 (0-99); PLATELET COUNT 267 10^3/uL (150-400); RED BLOOD CELL COUNT 3.96 10^6/uL (4.18-5.33); RED CELL DISTRIBUTION WIDTH 12.9 % (11.5-15.2)
[2017-06-07 17:22] LABS: APTT 26.5 SEC (23.0-38.0); INR 1.12 (0.83-1.16); PROTIME(PATIENT) 14.3 SEC (12.0-15.0)
[2017-06-07 17:24] LABS: ANION GAP 14 mEq/L (8-16); CALCIUM 9.2 mg/dL (8.5-10.4); CARBON DIOXIDE 19 mEq/l (22-31); CHLORIDE 106 mEq/L (97-110); ETHANOL SERUM < 10 mg/dL (0-10); GLOMERULAR FILTRATION RATE > 60; GLUCOSE 87 mg/dL (70-100); SALICYLATE 25.9 mg/dL (2.0-20.0); SODIUM 139 mEq/L (134-144)
[2017-06-07] MEDS ORDERED: ACETAMINOPHEN 325 MG TAB PO PRN (19:10)
[2017-06-07] MEDS ORDERED: HYDROCORTISONE 1% CREAM TP PRN (19:12)
[2017-06-07] MEDS ORDERED: SUMAtriptan 25 MG TAB PO PRN (19:12)
[2017-06-07] MEDS ORDERED: NS 1,000 ML IV SCH (19:15)
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
--- NOTE | 2017-06-07 19:51 | CPEKG ---
Heart Rate: 69 RR Interval: 870 P-R Interval: 156 QRSD Interval: 82 QT Interval: 416 QTC Interval: 446 P [place]: 50 QRS [place]: -45 T Wave [place]: 34 EKG Severity - ABNORMAL ECG - EKG Impression: SINUS RHYTHM EKG Impression: LAD, CONSIDER LEFT ANTERIOR FASCICULAR BLOCK Electronically Signed By: Josue Hooker 07-Jun-2017 20:05:26
[2017-06-07 19:58] LABS: SALICYLATE 23.9 mg/dL (2.0-20.0)
[2017-06-07] MEDS ORDERED: PRAZOSIN HCL 1 MG CAP PO SCH (21:00)
[2017-06-07 22:23] LABS: SALICYLATE 23.4 mg/dL (2.0-20.0)
[2017-06-08 04:38] LABS: % IMMATURE GRANULYOCYTES 0.4 % (0.0-1.1); ABSOLUTE IMMATURE GRANULOCYTES 0.04 10^3/uL (0.00-0.10); ADD DIFF? NO; ADD MORPH? NO; ADD SCAN? NO; ATYPICAL LYMPHOCYTE FLAG 20 (0-99); FRAGMENT RBC FLAG 0 (0-99); HEMATOCRIT 33.4 % (38.0-47.0); HEMOGLOBIN 11.5 g/dL (12.6-16.3); LEFT SHIFT FLG 0 (0-99); LIPEMIA HEMOLYSIS FLAG 90 (0-99); MEAN CELL HEMOGLOBIN 34.2 pg (27.9-34.1); MEAN CELL HEMOGLOBIN CONCENTR. 34.4 g/dL (32.4-36.7); MEAN CELL VOLUME 99.4 fL (81.5-99.8); MEAN PLATELET VOLUME 11.1 fL (8.7-11.7); PLATELET CLUMPS FLAG 0 (0-99); PLATELET COUNT 236 10^3/uL (150-400); RED BLOOD CELL COUNT 3.36 10^6/uL (4.18-5.33); RED CELL DISTRIBUTION WIDTH 13.2 % (11.5-15.2)
[2017-06-08 04:53] LABS: ALANINE AMINOTRANSFERASE 25 IU/L (9-52); ALBUMIN 3.1 g/dL (3.5-5.0); ALKALINE PHOSPHATASE 35 IU/L (38-126); ANION GAP 9 mEq/L (8-16); ASPARTATE AMINOTRANSFERASE 15 IU/L (14-46); BILIRUBIN,TOTAL 0.7 mg/dL (0.1-1.4); CALCIUM 8.4 mg/dL (8.5-10.4); CARBON DIOXIDE 20 mEq/l (22-31); CHLORIDE 111 mEq/L (97-110); GLOMERULAR FILTRATION RATE > 60; GLUCOSE 75 mg/dL (70-100); MAGNESIUM 1.8 mg/dL (1.6-2.3); SALICYLATE 15.8 mg/dL (2.0-20.0); SODIUM 140 mEq/L (134-144); TOTAL PROTEIN 5.7 g/dL (6.3-8.2)
[2017-06-08 05:06] VITALS: TEMP 97.7
[2017-06-08] MEDS ORDERED: LEVOTHYROXINE 25 MCG TAB PO SCH (06:00)
[2017-06-08] MEDS ORDERED: lamoTRIgine 100 MG TAB PO SCH ×3 (09:00→11:00)
[2017-06-08] MEDS ORDERED: ESCITALOPRAM OXALATE 10 MG TAB PO SCH ×2 (09:00→10:30)
[2017-06-08] MEDS ORDERED: ARIPiprazole 5 MG TAB PO SCH (09:00)
[2017-06-08] MEDS ORDERED: buPROPion XL 150 MG TAB PO SCH (09:00)
[2017-06-08 09:11] VITALS: RESP 19; O2SAT 96
[2017-06-08] MEDS ORDERED: NON-FORMULARY NEW DRUG (Lamotrigine [Lamictal] 300 MG) PO SCH (10:30)
[2017-06-08] MEDS ORDERED: traMADol 50 MG TAB PO PRN (10:46)
[2017-06-08 12:19] VITALS: BP 94/54; PULSE 70
[2017-06-08] MEDS ORDERED: clonazePAM 0.5 MG TAB PO SCH (16:00)
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
== END 2017-06-08 16:25 | disposition home or self-care (01) | DRG 918 ==
LOC: EDUNIT# → EEVIPCON 19:10 → OBSVTOIN 19:10 → F2N 20:32
PROVIDERS: ADMIT Internal Medicine; ATTEND Internal Medicine
PROC: 0HQEXZZ Repair Left Lower Arm Skin, External Approach (ICD-10-PCS; principal; 2017-06-07)
PROC: 0HQDXZZ Repair Right Lower Arm Skin, External Approach (ICD-10-PCS; principal; 2017-06-07)
DX: T39.012A Poisoning by aspirin, intentional self-harm, initial encounter (principal); E87.2 Acidosis; R45.851 Suicidal ideations; S51.811A Laceration without foreign body of right forearm, initial encounter; S51.812A Laceration without foreign body of left forearm, initial encounter; T42.4X2A Poisoning by benzodiazepines, intentional self-harm, initial encounter; F32.9 Major depressive disorder, single episode, unspecified
CPT/HCPCS: 80305; G0480

== ENCOUNTER → 2017-07-05 | Outpatient (CLI) | payer OTHER | LOC: FIMAGING 08:02 | PROVIDERS: ATTEND Obstetrics & Gynecology | DX: R10.31 Right lower quadrant pain (principal) ==

== ENCOUNTER 2017-08-04 18:20 | Inpatient (IN) | payer OTHER ==
--- NOTE | 2017-08-04 18:45 | EDPHY ---
H & P Smoking Status: Never smoked Time Seen by Provider: 08/04/17 18:32 HPI/ROS: CHIEF COMPLAINT: Suicidal ideation and medication overdose HISTORY OF PRESENT ILLNESS: Patient brought in by her boyfriend Surya. He describes sugared voicing increasing suicidal ideation over the past week off all medications. She told him she wants to kill herself with "razors or overdose on aspirin. "Today he saw her normal at 8:50 a.m. but returned home from work at 4:30 p.m. and saw her sleepy and taking medications with his suicidal intent. Patient says she "just wants to go to sleep. "No other recent illnesses described except for nasal congestion. REVIEW OF SYSTEMS: Eye: no change in vision ENT: no sore throat Cardiac: no chest pain or syncope Pulmonary: no cough or SOB Abdomen: no vomiting, diarrhea, abdominal pain Musculoskeletal: no back pain Skin: no rash Neuro: no headache Constitutional: no fever : no urinary symptoms A comprehensive 10 point review of systems and history is otherwise negative aside from elements mentioned in the history of present illness, but limited by the patient's sleepiness. PAST MEDICAL HISTORY: Depression Social history: Denies alcohol, here with boyfriend General Appearance: Sleepy but will open eyes to voice. Eyes: No scleral icterus. ENT, Mouth: Normal mucous membranes. Respiratory: Normal respiratory effort, breath sounds equal, lungs are clear to auscultation. Cardiovascular: Regular rate and rhythm. Gastrointestinal: Abdomen is soft and non tender. Neurological: Sleepy but will respond appropriately to commands and open eyes to voice. Face symmetric, can move arms and legs. Skin: Healed lacerations on both forearms but no new lacerations apparent. Musculoskeletal: No peripheral edema and no joint swelling. Psychiatric: Depressed affect. Emergency Department course/MDM: 1841: Patient placed on a mental health hold by myself for suicidal ideation. 2149: Sleeping now, but was more alert. Plan for mental health evaluation. Signed out to Dr. Fatih at 0 with plan for psych evaluation. 1442 on 08/[address] Medeiros with psychiatric placement pending. 1814: The patient will be transferred to [facility] for inpatient psychiatric hospital bed not available at this facility, in stable condition; accepting physician is Dr. Dennison. (Alejo,Carlin S) Constitutional: Initial Vital Signs Temperature (C) 37.0 C 08/04/17 18:23 Heart Rate 80 08/04/17 18:23 Respiratory Rate 16 08/04/17 18:23 Blood Pressure 108/82 H 08/04/17 18:23 O2 Sat (%) 98 08/04/17 18:23 O2 Delivery Mode Room Air Allergies/Adverse Reactions: bee venom protein (honey bee) Allergy (Verified 08/05/17 14:33) grass pollen-perennial rye, standar Allergy (Verified 08/05/17 14:33) pollen extracts Allergy (Verified 08/05/17 14:33) Home Medications: Medication Instructions Recorded EPINEPHrine [Epipen 0.3 MG] 0.3 mg IM ONCE PRN #7 syr 03/21/17 Levothyroxine [Synthroid 25 mcg 25 mcg PO DAILY06 #30 tab 03/21/17 (*)] Prazosin HCl [Minipress 1mg (*)] 2 mg PO HS #60 cap 03/21/17 SUMAtriptan [Imitrex 25 MG (*)] 100 mg PO DAILY PRN #30 tab 03/21/17 buPROPion XL [Wellbutrin 150mg XL] 300 mg PO DAILY #60 tab 03/21/17 traZODone [traZODONE 50MG (*)] 50 mg PO HS #30 tab 03/21/17 ARIPiprazole [Abilify 5 mg (*)] 5 mg PO DAILY 06/07/17 Escitalopram Oxalate [Lexapro 10 20 mg PO DAILY 06/08/17 MG] lamoTRIgine [Lamictal] 200 mg PO DAILY 06/08/17 LORazepam [Ativan (*)] 0.5 - 2 mg PO TID 08/05/17 Lurasidone HCl [Latuda] 60 mg PO DAILY@0800 08/05/17 clonazePAM [Klonopin (*)] 0.5 mg PO BID 08/05/17 Medical Decision Making - Diagnostics EKG Interpretation: 12-lead EKG interpreted by me; official reading is in trace master. My interpretation is sinus rhythm with right axis but otherwise normal intervals. ( Carlin Alejo) ED Course/Re-evaluation: 6:00 a.m.- The patient has remained stable during my shift. She is awaiting psychiatric evaluation later this morning given her methamphetamine was positive in her urine toxicology. Anticipate the case will be signed out to the oncoming provider, Dr. Medeiros at 7:00 a.m.. (Adriana Faith) 1327: The patient has been stable during my shift. We have met all of her psychiatric needs. We are looking for psychiatric placement. (Mathew Medeiros) Differential Diagnosis: Differential diagnosis considered for depression including functional and major depression, situational depression, medication side effect, drugs and alcohol abuse. (Carlin Alejo) - Data Points Laboratory Results: Laboratory Results 08/04/17 18:55 08/04/17 18:55 Medications Given: Discontinued Medications Cetirizine HCl (Zyrtec) 10 mg PO EDNOW ONE Stop: 08/05/17 09:22 Last Admin: 08/05/17 09:46 Dose: 10 mg Lorazepam (Ativan) 1 mg PO EDNOW ONE Stop: 08/05/17 15:15 Last Admin: 08/05/17 15:16 Dose: 1 mg Lurasidone HCl (Latuda) 60 mg PO EDNOW ONE Stop: 08/05/17 18:01 Last Admin: 08/05/17 18:05 Dose: 60 mg Oxymetazoline HCl (Afrin Nasal [place]) 2 sprays [place] EDNOW ONE Stop: 08/04/17 20:15 Last Admin: 08/04/17 20:16 Dose: 2 sprays Oxymetazoline HCl (Afrin Nasal [place]) 2 sprays [place] EDNOW ONE Stop: 08/05/17 09:56 Last Admin: 08/05/17 09:57 Dose: 2 sprays Departure - Departure Disposition: [facility] IP Clinical Impression: Suicidal ideation Depression Qualifiers: Depression Type: major depressive disorder Major depression recurrence: recurrent Active/Remission status: currently active Major depression episode severity: severe Psychotic features: without psychotic features Qualified Code(s ): F33.2 - Major depressive disorder, recurrent severe without psychotic features Condition: Good Referrals: NONE *PRIMARY CARE P,. [Primary Care Provider] - As per Instructions
--- NOTE | 2017-08-04 18:52 | CPEKG ---
Heart Rate: 70 RR Interval: 857 P-R Interval: 132 QRSD Interval: 72 QT Interval: 424 QTC Interval: 458 P [place]: 74 QRS [place]: -23 T Wave [place]: 38 EKG Severity - OTHERWISE NORMAL ECG - EKG Impression: SINUS RHYTHM EKG Impression: BORDERLINE LEFT AXIS DEVIATION Electronically Signed By: Carlin Alejo 04-Aug-2017 18:54:45
[2017-08-04 19:04] LABS: % IMMATURE GRANULYOCYTES 0.1 % (0.0-1.1); ABSOLUTE IMMATURE GRANULOCYTES 0.01 10^3/uL (0.00-0.10); ADD DIFF? NO; ADD MORPH? NO; ADD SCAN? NO; ATYPICAL LYMPHOCYTE FLAG 10 (0-99); FRAGMENT RBC FLAG 0 (0-99); HEMATOCRIT 45.1 % (38.0-47.0); HEMOGLOBIN 15.9 g/dL (12.6-16.3); LEFT SHIFT FLG 0 (0-99); LIPEMIA HEMOLYSIS FLAG 90 (0-99); MEAN CELL HEMOGLOBIN 35.3 pg (27.9-34.1); MEAN CELL HEMOGLOBIN CONCENTR. 35.3 g/dL (32.4-36.7); MEAN PLATELET VOLUME 10.6 fL (8.7-11.7); PLATELET CLUMPS FLAG 0 (0-99); PLATELET COUNT 262 10^3/uL (150-400); RED BLOOD CELL COUNT 4.51 10^6/uL (4.18-5.33); RED CELL DISTRIBUTION WIDTH 12.4 % (11.5-15.2)
[2017-08-04 19:23] LABS: ANION GAP 13 mEq/L (8-16); CALCIUM 10.1 mg/dL (8.5-10.4); CARBON DIOXIDE 23 mEq/l (22-31); CHLORIDE 103 mEq/L (97-110); ETHANOL SERUM < 10 mg/dL (0-10); GLOMERULAR FILTRATION RATE > 60; GLUCOSE 79 mg/dL (70-100); POTASSIUM 4.3 mEq/L (3.5-5.2); SALICYLATE < 1.0 mg/dL (2.0-20.0); SODIUM 139 mEq/L (134-144)
[2017-08-04] MEDS ORDERED: OXYMETAZOLINE 30 ML NASAL SPRAY EACHNARE ONE (20:14)
[2017-08-05] MEDS ORDERED: CETIRIZINE 10 MG TAB PO ONE (09:21)
[2017-08-05] MEDS ORDERED: OXYMETAZOLINE 30 ML NASAL SPRAY EACHNARE ONE (09:55)
[2017-08-05] MEDS ORDERED: LORazepam 1 MG TAB PO ONE (15:14)
[2017-08-05] MEDS ORDERED: LURASIDONE HCL 20 MG TAB PO ONE (18:00)
[2017-08-05] MEDS ORDERED: LURASIDONE HCL 20 MG TAB PO SCH (18:00)
[2017-08-05 18:42] VITALS: RESP 14
[2017-08-05] MEDS ORDERED: MAG HYDROX/AL HYDROX/SIMETH 30 ML UDCUP PO PRN (20:33)
[2017-08-05] MEDS ORDERED: OLANZapine DISINTEGR 5 MG TAB PO PRN (20:33)
[2017-08-05] MEDS ORDERED: NICOTINE POLACRILEX 2 MG GUM B PRN (20:33)
[2017-08-05] MEDS ORDERED: ACETAMINOPHEN 325 MG TAB PO PRN (20:33)
[2017-08-05] MEDS ORDERED: MAGNESIUM HYDROXIDE 30 ML UDCUP PO PRN (20:33)
[2017-08-05] MEDS ORDERED: LORazepam 0.5 MG TAB PO PRN (20:33)
[2017-08-05] MEDS ORDERED: SUMAtriptan 50 MG TAB PO PRN (20:35)
[2017-08-05] MEDS: traZODone 100 MG TAB PO SCH (21:18)
[2017-08-05] MEDS: diphenhydrAMINE 50 MG CAP PO PRN (21:18)
[2017-08-05] MEDS: PRAZOSIN HCL 1 MG CAP PO SCH (21:18)
[2017-08-05 21:24] LABS: ALANINE AMINOTRANSFERASE 29 IU/L (9-52); ALBUMIN 4.6 g/dL (3.5-5.0); ALKALINE PHOSPHATASE 55 IU/L (38-126); ASPARTATE AMINOTRANSFERASE 25 IU/L (14-46); BILIRUBIN,TOTAL 0.8 mg/dL (0.1-1.4); BILIRUBIN-CONJUGATED 0.4 mg/dL (0.0-0.5); BILIRUBIN-UNCONJUGATED 0.4 mg/dL (0.0-1.1); TOTAL PROTEIN 8.5 g/dL (6.3-8.2)
[2017-08-06] MEDS: OXYMETAZOLINE 30 ML NASAL SPRAY EACHNARE PRN ×2 (05:45→20:28)
[2017-08-06] MEDS ORDERED: LEVOTHYROXINE 25 MCG TAB PO SCH (06:00)
[2017-08-06] MEDS: buPROPion XL 150 MG TAB PO SCH (08:55)
[2017-08-06] MEDS: LURASIDONE HCL 40 MG TAB PO SCH (08:55)
[2017-08-06] MEDS: CETIRIZINE 10 MG TAB PO SCH (08:55)
[2017-08-06] MEDS: ARIPiprazole 5 MG TAB PO SCH (08:55)
[2017-08-06] MEDS: LEVOTHYROXINE 25 MCG TAB PO SCH (11:11)
--- NOTE | 2017-08-06 14:59 | BAPA ---
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 weight gain and sedation in the past. MD indicated Wellbutrin would be a reasonable choice in at case, as it is less likely to cause sedation and weight gain. The patient said though that she blanco s been on it for 2 years and does not feel like it has been beneficial. MD suggested that may be bec ause pharmacologic treatment alone is not sufficient to treat her PTSD and her borderline personality disorder, and recommended a combination of pharmacological treatments with DBT, CBT and/or EMDR. e patient said that she was willing to consider this. also stated that the patient may not need t o be on mood stabilizers, as her diagnosis from Dr. Lugo, from Dr. Blanc and myself do not include bipolar spectrum disorder as one of her diagnoses. Therefore, it is unlikely that she would receive significant benefit from a mood stabilizer. However, explained that he would not be the primary treating psychiatrist for the patient and that the best course of action would be to have the patient talk to her primary psychiatrist who will start seeing her on Monday morning, and come up with a cou rse of action that both the patient, her inpatient psychiatrist as well as her outpatient prescriber can all agree on. The patient thought this was a good idea. She agreed to just continue taking Well butrin, Abilify and Latuda, which are the medications that she says she does not have side effects fr om and does not complain of grogginess or sedation. She would stay on those today and tomorrow, and then she would discuss other medication adjustments as recommended by her primary treating psychiatri , and then a course of action would be decided in terms of an aftercare plan. The patient was reas sured by this plan of action and said that she would consent and agreed to this. 4. The patient will engage in individual, group, and milieu therapies. ESTIMATED LENGTH OF STAY: Is 3-5 days. /[id number]/MODL
--- NOTE | 2017-08-06 18:34 | PDGENHP ---
History and Physical - Chief Complaint suicide attempt - History of Present Illness Pt is a 27yo F w/ h/o bipolar disorder, depression who was admitted after a suicide attempt in which she tried to overdose on trazodone, Ativan, and clonazepam. She normally goes to [facility] to see her Psychiatrist and Psychologist. She admits to recent fatigue. She has had insomnia. She admits to SI. Denies HI. She has had recent RLQ pain, for which she underwent pelvic US that was normal. No other physical complaints currently. History Information - Allergies/Home Medication List Allergies/Adverse Reactions: bee venom protein (honey bee) Allergy (Verified 08/05/17 14:33) grass pollen-perennial rye, standar Allergy (Verified 08/05/17 14:33) pollen extracts Allergy (Verified 08/05/17 14:33) Home Medications: ARIPiprazole [Abilify 5 mg (*)] 5 mg PO DAILY 06/07/17 [Last Taken 08/02/17] Escitalopram Oxalate [Lexapro 10 MG] 20 mg PO DAILY 06/08/17 [Last Taken ] lamoTRIgine [Lamictal] 200 mg PO DAILY 06/08/17 [Last Taken 08/02/17] LORazepam [Ativan (*)] 0.5 - 2 mg PO TID 08/05/17 [Last Taken 08/04/17] Lurasidone HCl [Latuda] 60 mg PO DAILY@0800 08/05/17 [Last Taken 08/04/17] clonazePAM [Klonopin (*)] 0.5 mg PO BID 08/05/17 [Last Taken 08/02/17] I have personally reviewed and updated: family history, medical history, social history, surgical history Past Medical History: bipolar, depression, migraines about once a week - Past Medical History Additional medical history: major depressive disorder with posttraumatic stress disorder, obsessive-compulsive traits. Migraine headache. Hypothyroidism - Surgical History Additional surgical history: previous superficial treatment for bilateral upper extremity lacerations. Tonsillectomy. - Family History Positive for: cancer (father - esophagus), hypertension Additional family history: numerous first-degree relatives with major depressive disorder and bipolar disease. Mother - bipolar. - Social History Smoking Status: Never smoked Alcohol Use: Occasionally (3-4 drinks/week.) Drug Use: Marijuana (every other day.) Additional social history: patient's sister was living with her locally up until 2 weeks ago Review of Systems Review of Systems: ROS: 10pt was reviewed & negative except for what was stated in HPI & below Physical Exam Physical Exam: Gen: A&Ox 3, NAD, young woman. HEENT: EOMI, MMM. Neck: trachea midline. CV: RRR no MRG. Resp: CTAB no RRW. Abd: SND. +BS. MSK: nl gait. Neuro: CN II-XII grossly intact. Psych: approp mood/affect. : no CVA tenderness. Skin: no rash. Heme/lymph: no periph edema. Temp Pulse Resp BP Pulse Ox 36.6 C 90 14 109/63 95 08/06/17 05:46 08/06/17 05:46 08/06/17 05:46 08/06/17 05:46 08/06/17 05:46 Lab Data & Imaging Review 08/04/17 18:55 08/04/17 18:55 WBC 7.68 10^3/uL (3.80-9.50) 08/04/17 18:55 RBC 4.51 10^6/uL (4.18-5.33) 08/04/17 18:55 Hgb 15.9 g/dL (12.6-16.3) 08/04/17 18:55 Hct 45.1 % (38.0-47.0) 08/04/17 18:55 MCV 100.0 fL (81.5-99.8) H 08/04/17 18:55 MCH 35.3 pg (27.9-34.1) H 08/04/17 18:55 MCHC 35.3 g/dL (32.4-36.7) 08/04/17 18:55 RDW 12.4 % (11.5-15.2) 08/04/17 18:55 Plt Count 262 10^3/uL (150-400) 08/04/17 18:55 MPV 10.6 fL (8.7-11.7) 08/04/17 18:55 Neut % (Auto) 60.5 % (39.3-74.2) 08/04/17 18:55 Lymph % (Auto) 26.8 % (15.0-45.0) 08/04/17 18:55 Barbour % (Auto) 10.0 % (4.5-13.0) 08/04/17 18:55 Eos % (Auto) 1.8 % (0.6-7.6) 08/04/17 18:55 Baso % (Auto) 0.8 % (0.3-1.7) 08/04/17 18:55 Nucleat RBC Rel Count 0.0 % (0.0-0.2) 08/04/17 18:55 Absolute Neuts (auto) 4.64 10^3/uL (1.70-6.50) 08/04/17 18:55 Absolute Lymphs (auto) 2.06 10^3/uL (1.00-3.00) 08/04/17 18:55 Absolute Monos (auto) 0.77 10^3/uL (0.30-0.80) 08/04/17 18:55 Absolute Eos (auto) 0.14 10^3/uL (0.03-0.40) 08/04/17 18:55 Absolute Basos (auto) 0.06 10^3/uL (0.02-0.10) 08/04/17 18:55 Absolute Nucleated RBC 0.00 10^3/uL (0-0.01) 08/04/17 18:55 Immature Gran % 0.1 % (0.0-1.1) 08/04/17 18:55 Immature Gran # 0.01 10^3/uL (0.00-0.10) 08/04/17 18:55 Sodium 139 mEq/L (134-144) 08/04/17 18:55 Potassium 4.3 mEq/L (3.5-5.2) 08/04/17 18:55 Chloride 103 mEq/L (97-110) 08/04/17 18:55 Carbon Dioxide 23 mEq/l (22-31) 08/04/17 18:55 Anion Gap 13 mEq/L (8-16) 08/04/17 18:55 BUN 13 mg/dL (7-23) 08/04/17 18:55 Creatinine 1.0 mg/dL (0.6-1.0) 08/04/17 18:55 Estimated GFR > 60 08/04/17 18:55 Glucose 79 mg/dL (70-100) 08/04/17 18:55 Calcium 10.1 mg/dL (8.5-10.4) 08/04/17 18:55 Total Bilirubin 0.8 mg/dL (0.1-1.4) 08/04/17 18:35 Conjugated Bilirubin 0.4 mg/dL (0.0-0.5) 08/04/17 18:35 Unconjugated Bilirubin 0.4 mg/dL (0.0-1.1) 08/04/17 18:35 AST 25 IU/L (14-46) 08/04/17 18:35 ALT 29 IU/L (9-52) 08/04/17 18:35 Alkaline Phosphatase 55 IU/L (38-126) 08/04/17 18:35 Total Protein 8.5 g/dL (6.3-8.2) H 08/04/17 18:35 Albumin 4.6 g/dL (3.5-5.0) 08/04/17 18:35 TSH 1.780 uIU/mL (0.465-4.680) 08/04/17 18:35 Beta HCG, Qual NEGATIVE 08/04/17 18:55 Salicylates < 1.0 mg/dL (2.0-20.0) L 08/04/17 18:55 Urine Opiates Screen NEGATIVE (NEGATIVE) 08/04/17 19:37 Acetaminophen < 10 mcg/mL (10-30) L 08/04/17 18:55 Urine Barbiturates NEGATIVE (NEGATIVE) 08/04/17 19:37 Ur Phencyclidine Scrn NEGATIVE (NEGATIVE) 08/04/17 19:37 Ur Amphetamine Screen NON-NEGATIVE (NEGATIVE) H 08/04/17 19:37 U Benzodiazepines Scrn NON-NEGATIVE (NEGATIVE) H 08/04/17 19:37 Urine Cocaine Screen NEGATIVE (NEGATIVE) 08/04/17 19:37 U Marijuana (THC) Screen NON-NEGATIVE (NEGATIVE) H 08/04/17 19:37 Ethyl Alcohol < 10 mg/dL (0-10) 08/04/17 18:55 EKG additional interpertation: NSR, rt 70, no ischemic changes, QTc 450 Assessment & Plan Assessment: Depression (Acute) Suicidal ideation (Acute) Attempted suicide Bipolar disorder w/ depression, anxiety - uncontrolled QT prolongation RLQ pelvic pain, currently resolved Multiple allergies (nonfood, nonmedication) -Reviewed tests/records. Consider further workup in pelvic/LQ abd pain persists. -Consider meds that avoid QT prolongation. -Add hydroxyzine prn allergies. Will also help w/ anxiety. -May continue allergy shots as outpt.
[2017-08-06] MEDS: traZODone 100 MG TAB PO SCH (20:28)
[2017-08-06] MEDS: PRAZOSIN HCL 1 MG CAP PO SCH (20:28)
[2017-08-06] MEDS: MELATONIN 3 MG TAB PO PRN (20:34)
[2017-08-06] MEDS: diphenhydrAMINE 50 MG CAP PO PRN (20:34)
[2017-08-07] MEDS: OXYMETAZOLINE 30 ML NASAL SPRAY EACHNARE PRN ×2 (05:35→19:29)
[2017-08-07] MEDS: LURASIDONE HCL 40 MG TAB PO SCH (08:00)
[2017-08-07] MEDS: CETIRIZINE 10 MG TAB PO SCH (08:00)
[2017-08-07] MEDS: LEVOTHYROXINE 25 MCG TAB PO SCH (08:00)
[2017-08-07] MEDS: buPROPion XL 150 MG TAB PO SCH (08:01)
[2017-08-07] MEDS: ARIPiprazole 5 MG TAB PO SCH (08:22)
[2017-08-07] MEDS ORDERED: LORazepam 0.5 MG TAB PO PRN (11:57)
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
[2017-08-07] MEDS: traZODone 100 MG TAB PO SCH (21:05)
[2017-08-07] MEDS: diphenhydrAMINE 50 MG CAP PO PRN (21:05)
[2017-08-07] MEDS: MELATONIN 3 MG TAB PO PRN (21:05)
[2017-08-08 06:21] VITALS: BP 118/60; PULSE 60; TEMP 98.1; O2SAT 97
[2017-08-08] MEDS: OXYMETAZOLINE 30 ML NASAL SPRAY EACHNARE PRN (08:20)
[2017-08-08] MEDS: LURASIDONE HCL 40 MG TAB PO SCH (08:20)
[2017-08-08] MEDS: CETIRIZINE 10 MG TAB PO SCH (08:21)
[2017-08-08] MEDS ORDERED: buPROPion XL 150 MG TAB PO SCH (09:00)
[2017-08-08] MEDS: LEVOTHYROXINE 25 MCG TAB PO SCH (10:47)
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
[2017-08-09] MEDS ORDERED: buPROPion XL 150 MG TAB PO SCH (09:00)
== END 2017-08-08 13:12 | disposition home or self-care (01) | DRG 885 ==
LOC: BBEH 08-05 18:55
PROVIDERS: ADMIT Psychiatry & Neurology Psychiatry; ATTEND Psychiatry & Neurology Psychiatry
DX: F31.30 Bipolar disorder, current episode depressed, mild or moderate severity, unspecified (principal); F60.3 Borderline personality disorder; F43.10 Post-traumatic stress disorder, unspecified; F12.90 Cannabis use, unspecified, uncomplicated
CPT/HCPCS: 80305; G0480

== ENCOUNTER 2017-12-15 18:59 | Inpatient (IN) | payer OTHER ==
--- NOTE | 2017-12-15 19:08 | EDPHY ---
H & P Time Seen by Provider: 12/15/17 19:05 HPI/ROS: CHIEF COMPLAINT: Aspirin overdose HISTORY OF PRESENT ILLNESS: Patient is a history of bipolar disorder with depression in was previously admitted on 06/07/2017 for multidrug overdose including aspirin. She says she took 8325 mg aspirin tablet starting at 1600 today. She complains only of abdominal pain and says she has a little bit of difficulty hearing right now. Apparently she notified a friend who then called 911 and police brought her in on a hold with EMS. Patient denies any other, ingestions. Says she feels like she does not want hurt herself right now. REVIEW OF SYSTEMS: Eye: no change in vision ENT: no sore throat Cardiac: no chest pain or syncope Pulmonary: no cough or SOB Abdomen: No vomiting or diarrhea Musculoskeletal: no back pain Skin: Old healed forearm lacerations nothing new Neuro: no headache Constitutional: no fever : no urinary symptoms A comprehensive 10 point review of systems is otherwise negative aside from elements mentioned in the history of present illness. PAST MEDICAL HISTORY: Hypothyroid, bipolar disorder with depression Social history: Denies alcohol or drugs tonight General Appearance: Alert and conversant, cooperative. Eyes: No scleral icterus. ENT, Mouth: Normal mucous membranes. Respiratory: Normal respiratory effort, breath sounds equal, lungs are clear to auscultation. Cardiovascular: Regular rate and rhythm. Gastrointestinal: Abdomen is soft and non tender. Neurological: Alert, face symmetric, normal motor and sensory in extremities. Skin: Healed bilateral forearm lacerations, nothing new. Musculoskeletal: No peripheral edema. Psychiatric: Not agitated. Flat affect. Emergency Department course/MDM: Labs to include CBC chemistry and LFTs, protime and test, Tylenol and aspirin. EKG performed because multiple other medications found in the house. Patient says she has had extended-release Wellbutrin but denies having taken it. Other medications in the house including Lamictal and Abilify. She was placed on a mental health hold by the police for overdose. 1947: Phenergan 12.5 mg IV for nausea. Salicylate level per lab is greater than 40, being diluted. [facility] consulted, Case # [id number]; check potassium levels q2 hours, serial ASA levels. 2 amps IV bicarb, bicarbonate drip at 200 ml/hour as recommended by poison Center. Admission ICU to hospitalist. 2000: Patient still alert and awake. ASA 51.9. Smoking Status: Never smoked Constitutional: Initial Vital Signs Temperature (C) 36.8 C 12/15/17 19:03 Heart Rate 69 12/15/17 19:03 Respiratory Rate 16 12/15/17 19:03 Blood Pressure 145/92 H 12/15/17 19:03 O2 Sat (%) 96 12/15/17 19:03 O2 Delivery Mode Room Air Allergies/Adverse Reactions: bee venom protein (honey bee) Allergy (Verified 08/05/17 14:33) grass pollen-perennial rye, standar Allergy (Verified 08/05/17 14:33) pollen extracts Allergy (Verified 08/05/17 14:33) Home Medications: Medication Instructions Recorded traZODone [traZODONE 100MG (*)] 100 mg PO HS #30 tab 08/08/17 Lurasidone HCl [Latuda] 40 mg PO DAILY@0800 12/15/17 buPROPion XL [Wellbutrin 150mg XL] 150 mg PO DAILY@20 12/15/17 hydrOXYzine HCL [hydrOXYzine HCL 25 mg PO Q6H PRN 12/15/17 (RX)] lamoTRIgine [LamICTAL] 25 mg PO DAILY 12/15/17 Medical Decision Making - Diagnostics EKG Interpretation: EKG performed for overdose with multiple medications possible. 12-lead EKG interpreted by me; official reading is in trace master. My interpretation is sinus rhythm with borderline left axis, QRS 78. Differential Diagnosis: Differential diagnosis considered for abdominal pain including but not limited to aspirin toxicity, appendicitis, ectopic, gastritis and urinary tract infection. Consult/Admit Bed Type: [place] [id number] Critical Care Time: Critical care time spent by me, Dr. Alejo, exclusively with the care of this patient was 35 minutes, exclusive of PA or PROJECT ENGINEER time and exclusive of separate procedures. The organ system at risk was metabolic/toxicologic and I ordered IV bicarbonate bolus and drip, antiemetics, IV fluids, consultation with hospitalist and poison Control to stabilize the patient and prevent worsening of the patient's condition. - Data Points Laboratory Results: Laboratory Results 12/15/17 19:01 12/15/17 19:01 12/15/17 12/15/17 12/15/17 19:23 19:01 19:01 WBC RBC Hgb Hct MCV MCH MCHC RDW Plt Count MPV Neut % (Auto) Lymph % (Auto) Zapata % (Auto) Eos % (Auto) Baso % (Auto) Nucleat RBC Rel Count Absolute Neuts (auto) Absolute Lymphs (auto) Absolute Monos (auto) Absolute Eos (auto) Absolute Basos (auto) Absolute Nucleated RBC Immature Gran % Immature Gran # PT INR Sodium 140 mEq/L mEq/L (135-145) Potassium 4.0 mEq/L mEq/L (3.5-5.2) Chloride 101 mEq/L mEq/L (97-110) Carbon Dioxide 21 mEq/l L mEq/l (22-31) Anion Gap 18 mEq/L H mEq/L (8-16) BUN 14 mg/dL mg/dL (7-23) Creatinine 1.1 mg/dL H mg/dL (0.6-1.0) Estimated GFR 59 Glucose 86 mg/dL mg/dL (70-100) Calcium 10.9 mg/dL H mg/dL (8.5-10.4) Phosphorus 4.7 mg/dL H mg/dL (2.5-4.5) Total Bilirubin 0.2 mg/dL mg/dL (0.1-1.4) Conjugated Bilirubin 0.2 mg/dL mg/dL (0.0-0.5) Unconjugated Bilirubin 0.0 mg/dL mg/dL (0.0-1.1) AST 24 IU/L IU/L (14-46) ALT 33 IU/L IU/L (9-52) Alkaline Phosphatase 79 IU/L IU/L (38-126) Total Protein 9.3 g/dL H g/dL (6.3-8.2) Albumin 4.8 g/dL g/dL (3.5-5.0) TSH 4.450 uIU/mL uIU/mL (0.465-4.680) Beta HCG, Qual NEGATIVE Salicylates 51.9 mg/dL H mg/dL (2.0-20.0) Urine Opiates Screen NEGATIVE (NEGATIVE) Acetaminophen < 10 mcg/mL L mcg/mL (10-30) Urine Barbiturates NEGATIVE (NEGATIVE) Ur Phencyclidine Scrn NEGATIVE (NEGATIVE) Ur Amphetamine Screen NEGATIVE (NEGATIVE) U Benzodiazepines Scrn NEGATIVE (NEGATIVE) Urine Cocaine Screen NEGATIVE (NEGATIVE) U Marijuana (THC) Screen NON-NEGATIVE H (NEGATIVE) Ethyl Alcohol < 10 mg/dL mg/dL (0-10) 12/15/17 12/15/17 19:01 19:01 WBC 13.54 10^3/uL H 10^3/uL (3.80-9.50) RBC 4.84 10^6/uL 10^6/uL (4.18-5.33) Hgb 16.7 g/dL H g/dL (12.6-16.3) Hct 47.6 % H % (38.0-47.0) MCV 98.3 fL fL (81.5-99.8) MCH 34.5 pg H pg (27.9-34.1) MCHC 35.1 g/dL g/dL (32.4-36.7) RDW 11.8 % % (11.5-15.2) Plt Count 331 10^3/uL 10^3/uL (150-400) MPV 10.5 fL fL (8.7-11.7) Neut % (Auto) 57.8 % % (39.3-74.2) Lymph % (Auto) 34.1 % % (15.0-45.0) Zapata % (Auto) 6.7 % % (4.5-13.0) Eos % (Auto) 0.6 % % (0.6-7.6) Baso % (Auto) 0.5 % % (0.3-1.7) Nucleat RBC Rel Count 0.0 % % (0.0-0.2) Absolute Neuts (auto) 7.82 10^3/uL H 10^3/uL (1.70-6.50) Absolute Lymphs (auto) 4.62 10^3/uL H 10^3/uL (1.00-3.00) Absolute Monos (auto) 0.91 10^3/uL H 10^3/uL (0.30-0.80) Absolute Eos (auto) 0.08 10^3/uL 10^3/uL (0.03-0.40) Absolute Basos (auto) 0.07 10^3/uL 10^3/uL (0.02-0.10) Absolute Nucleated RBC 0.00 10^3/uL 10^3/uL (0-0.01) Immature Gran % 0.3 % % (0.0-1.1) Immature Gran # 0.04 10^3/uL 10^3/uL (0.00-0.10) PT 12.6 SEC SEC (12.0-15.0) INR 0.92 (0.83-1.16) Sodium Potassium Chloride Carbon Dioxide Anion Gap BUN Creatinine Estimated GFR Glucose Calcium Phosphorus Total Bilirubin Conjugated Bilirubin Unconjugated Bilirubin AST ALT Alkaline Phosphatase Total Protein Albumin TSH Beta HCG, Qual Salicylates Urine Opiates Screen Acetaminophen Urine Barbiturates Ur Phencyclidine Scrn Ur Amphetamine Screen U Benzodiazepines Scrn Urine Cocaine Screen U Marijuana (THC) Screen Ethyl Alcohol Medications Given: Sodium Bicarbonate 150 meq/ (Dextrose) 1,150 mls @ 200 mls/hr IV CONT ODILON Stop: 06/13/18 19:59 Last Admin: 12/15/17 20:31 Dose: 1,150 mls Discontinued Medications Sodium Chloride (Ns) 1,000 mls @ 0 mls/hr IV EDNOW ONE; Wide Open PRN Reason: Protocol Stop: 12/15/17 19:35 Last Admin: 12/15/17 19:40 Dose: 1,000 mls Sodium Chloride (Ns) 1,000 mls @ 0 mls/hr IV EDNOW ONE; Wide Open PRN Reason: Protocol Stop: 12/15/17 19:56 Last Admin: 12/15/17 20:08 Dose: 1,000 mls Promethazine HCl (Phenergan) 12.5 mg IVP EDNOW ONE Stop: 12/15/17 19:47 Last Admin: 12/15/17 19:50 Dose: 12.5 mg Sodium Bicarbonate (Sodium Bicarbonate) 100 meq IVP EDNOW ONE Stop: 12/15/17 19:59 Last Admin: 12/15/17 20:07 Dose: 100 meq Departure - Departure Disposition: [facility] Inpatient Acute Clinical Impression: Drug overdose, intentional Qualifiers: Encounter type: initial encounter Qualified Code(s): T50.902A - Poisoning by unspecified drugs, medicaments and biological substances, intentional self-harm , initial encounter Aspirin overdose Qualifiers: Encounter type: initial encounter Injury intent: intentional self-harm Qualified Code(s): T39.012A - Poisoning by aspirin, intentional self-harm, initial encounter Condition: Serious
--- NOTE | 2017-12-15 19:12 | CPEKG ---
Heart Rate: 68 RR Interval: 882 P-R Interval: 156 QRSD Interval: 78 QT Interval: 408 QTC Interval: 434 P Waterflow: 61 QRS Waterflow: -26 T Wave Waterflow: 33 EKG Severity - OTHERWISE NORMAL ECG - EKG Impression: SINUS RHYTHM EKG Impression: BORDERLINE LEFT AXIS DEVIATION Electronically Signed By: Carlin Alejo 15-Dec-2017 19:11:33
[2017-12-15 19:22] LABS: PLATELET COUNT 331 10^3/uL (150-400)
[2017-12-15 19:31] LABS: INR 0.92 (0.83-1.16); PROTIME(PATIENT) 12.6 SEC (12.0-15.0)
[2017-12-15] MEDS ORDERED: NS 1,000 ML IV ONE ×2 (19:34→19:55)
[2017-12-15] MEDS ORDERED: PROMETHAZINE HCL 25 MG/ML INJ IVP ONE (19:46)
[2017-12-15] MEDS ORDERED: SODIUM BICARBONATE 50 MEQ/50 ML SYR IVP ONE (19:58)
[2017-12-15] MEDS: SODIUM BICARBONATE 150 MEQ in D5W 1,000 ML IV SCH (20:31)
[2017-12-15] MEDS ORDERED: ACETAMINOPHEN 325 MG TAB PO PRN (22:20)
[2017-12-15] MEDS ORDERED: ONDANSETRON DISINTEGRATING 4 MG TAB PO PRN (22:20)
--- NOTE | 2017-12-15 23:08 | PDGENHP ---
History and Physical - Chief Complaint ASA ingestion - History of Present Illness 27 yo F w/ hx of BPD presents via EMS after suicide attempt via ASA ingestion. Patient states that around 1600 she ingested approximately 80 325 mg tabs of ASA. She would rather not discuss the details of her suicidal intent with me, but she states she is not currently desiring to hurt herself. She called EMS shortly after the ingestion and was brought to the ED. In the ED work-up was notable for Cr of 1.1, CO2 of 21,AG of 18, and ASA level of 51. Patient is currently nauseous with abdominal pain and significant tinnitus. She denies altered mental status or shortness of breath. She is hemodynamically stable, on room air, and in sinus rhythm. History Information - Allergies/Home Medication List Allergies/Adverse Reactions: bee venom protein (honey bee) Allergy (Verified 08/05/17 14:33) grass pollen-perennial rye, standar Allergy (Verified 08/05/17 14:33) pollen extracts Allergy (Verified 08/05/17 14:33) Home Medications: Lurasidone HCl [Latuda] 40 mg PO DAILY@0800 12/15/17 [Last Taken Unknown] buPROPion XL [Wellbutrin 150mg XL] 150 mg PO DAILY@20 12/15/17 [Last Taken 12/14] hydrOXYzine HCL [hydrOXYzine HCL (RX)] 25 mg PO Q6H PRN 12/15/17 [Last Taken ] lamoTRIgine [LamICTAL] 25 mg PO DAILY 12/15/17 [Last Taken Unknown] I have personally reviewed and updated: family history, medical history Past Medical History: bipolar, depression, migraines about once a week - Past Medical History Additional medical history: major depressive disorder with posttraumatic stress disorder, obsessive-compulsive traits. Migraine headache. Hypothyroidism - Surgical History Additional surgical history: previous superficial treatment for bilateral upper extremity lacerations. Tonsillectomy. - Family History Positive for: cancer (father - esophagus), hypertension Additional family history: numerous first-degree relatives with major depressive disorder and bipolar disease. Mother - bipolar. - Social History Smoking Status: Never smoked Additional social history: patient's sister was living with her locally up until 2 weeks ago Review of Systems Review of Systems: ROS: 10pt was reviewed & negative except for what was stated in HPI & below Physical Exam Physical Exam: Temp Pulse Resp BP Pulse Ox 37.0 C 74 16 115/76 697 H 12/15/17 21:00 12/15/17 21:00 12/15/17 21:00 12/15/17 21:00 12/15/17 21:00 Constitutional: no apparent distress, not in pain Eyes: PERRL, EOMI Ears, Nose, Mouth, Throat: moist mucous membranes, no oral mucosal ulcers Cardiovascular: regular rate and rhythym, no murmur, rub, or gallop Respiratory: no respiratory distress, no rales or rhonchi Gastrointestinal: normoactive bowel sounds, soft, non-tender abdomen Genitourinary: no bladder fullness, no bladder tenderness Skin: warm, normal color Musculoskeletal: full muscle strength, no muscle tenderness Neurologic: AAOx3, CN II-XII Intact Psychiatric: interacting appropriately, not anxious Lab Data & Imaging Review 12/15/17 19:01 12/15/17 19:01 WBC 13.54 10^3/uL (3.80-9.50) H 12/15/17 19:01 RBC 4.84 10^6/uL (4.18-5.33) 12/15/17 19:01 Hgb 16.7 g/dL (12.6-16.3) H 12/15/17 19:01 Hct 47.6 % (38.0-47.0) H 12/15/17 19:01 MCV 98.3 fL (81.5-99.8) 12/15/17 19:01 MCH 34.5 pg (27.9-34.1) H 12/15/17 19:01 MCHC 35.1 g/dL (32.4-36.7) 12/15/17 19:01 RDW 11.8 % (11.5-15.2) 12/15/17 19:01 Plt Count 331 10^3/uL (150-400) 12/15/17 19:01 MPV 10.5 fL (8.7-11.7) 12/15/17 19:01 Neut % (Auto) 57.8 % (39.3-74.2) 12/15/17 19:01 Lymph % (Auto) 34.1 % (15.0-45.0) 12/15/17 19:01 Kleberg % (Auto) 6.7 % (4.5-13.0) 12/15/17 19:01 Eos % (Auto) 0.6 % (0.6-7.6) 12/15/17 19:01 Baso % (Auto) 0.5 % (0.3-1.7) 12/15/17 19:01 Nucleat RBC Rel Count 0.0 % (0.0-0.2) 12/15/17 19:01 Absolute Neuts (auto) 7.82 10^3/uL (1.70-6.50) H 12/15/17 19:01 Absolute Lymphs (auto) 4.62 10^3/uL (1.00-3.00) H 12/15/17 19:01 Absolute Monos (auto) 0.91 10^3/uL (0.30-0.80) H 12/15/17 19:01 Absolute Eos (auto) 0.08 10^3/uL (0.03-0.40) 12/15/17 19:01 Absolute Basos (auto) 0.07 10^3/uL (0.02-0.10) 12/15/17 19:01 Absolute Nucleated RBC 0.00 10^3/uL (0-0.01) 12/15/17 19: Immature Gran % 0.3 % (0.0-1.1) 12/15/17 19: Immature Gran # 0.04 10^3/uL (0.00-0.10) 12/15/17 19: PT 12.6 SEC (12.0-15.0) 12/15/17 19:01 INR 0.92 (0.83-1.16) 12/15/17 19:01 Sodium 140 mEq/L (135-145) 12/15/17 19:01 Potassium 4.0 mEq/L (3.5-5.2) 12/15/17 19:01 Chloride 101 mEq/L (97-110) 12/15/17 19:01 Carbon Dioxide 21 mEq/l (22-31) L 12/15/17 19:01 Anion Gap 18 mEq/L (8-16) H 12/15/17 19:01 BUN 14 mg/dL (7-23) 12/15/17 19:01 Creatinine 1.1 mg/dL (0.6-1.0) H 12/15/17 19:01 Estimated GFR 59 12/15/17 19: Glucose 86 mg/dL (70-100) 12/15/17 19:01 Calcium 10.9 mg/dL (8.5-10.4) H 12/15/17 19:01 Phosphorus 4.7 mg/dL (2.5-4.5) H 12/15/17 19:01 Total Bilirubin 0.2 mg/dL (0.1-1.4) 12/15/17 19:01 Conjugated Bilirubin 0.2 mg/dL (0.0-0.5) 12/15/17 19: Unconjugated Bilirubin 0.0 mg/dL (0.0-1.1) 12/15/17 19:01 AST 24 IU/L (14-46) 12/15/17 19: ALT 33 IU/L (9-52) 12/15/17 19: Alkaline Phosphatase 79 IU/L (38-126) 12/15/17 19:01 Total Protein 9.3 g/dL (6.3-8.2) H 12/15/17 19:01 Albumin 4.8 g/dL (3.5-5.0) 12/15/17 19: TSH 4.450 uIU/mL (0.465-4.680) 12/15/17 19: Beta HCG, Qual NEGATIVE 12/15/17 19: Salicylates 51.9 mg/dL (2.0-20.0) H 12/15/17 19: Urine Opiates Screen NEGATIVE (NEGATIVE) 12/15/17: Acetaminophen < 10 mcg/mL (10-30) L 12/15/17 19: Urine Barbiturates NEGATIVE (NEGATIVE) 12/15/17 19: Ur Phencyclidine Scrn NEGATIVE (NEGATIVE) 12/15/17: Ur Amphetamine Screen NEGATIVE (NEGATIVE) 12/15/17: U Benzodiazepines Scrn NEGATIVE (NEGATIVE) 12/15/17 19: Urine Cocaine Screen NEGATIVE (NEGATIVE) 12/15/17: U Marijuana (THC) Screen NON-NEGATIVE (NEGATIVE) H 12/15/17 19: Ethyl Alcohol < 10 mg/dL (0-10) 12/15/17 19:01 Visualized and Interpreted EKG results: Yes EKG Interpretation: Positive for: normal sinsus rhythm Assessment & Plan Assessment: 27 yo F w/ hx of depression and BPD presents after suicide attempt via ASA ingestion. Plan: 1. ASA ingestion - Ingested as suicide attempt, patient states she took about 80 325 mg tabs at 1600 on day of admission. Work-up thus far notable for Cr of 1.1, CO2 of 21,AG of 18, and ASA level of 51. Patient is currently nauseous with abdominal pain and significant tinnitus. She denies altered mental status or shortness of breath. She is hemodynamically stable, on room air, and in sinus rhythm. - S/p 2 L NS, 2 amps bicarb in ED - Poison control contacted, recommending bicarbonate drip @ 200 mL/hr - Will check BMP, ASA lvl, and ABG now; monitor q2h - Check UA to monitor urine pH - I discussed the case with Dr. Kyle from Nephrology, we will monitor laboratory values carefully and keep in mind possible need for HD 2. BPD, depression with acute suicidality - Patient admitted to ICU under M1 hold. She takes Latuda, Wellbutrin, and Trazodone as outpatient. Diet - Regular Code - Full Ppx - Low risk Dispo Admit to ICU under inpatient status noting need for close laboratory and hemodynamic monitoring.
[2017-12-15] MEDS: ONDANSETRON 4 MG/2 ML VIAL IVP PRN (23:24)
[2017-12-16] MEDS ORDERED: POTASSIUM CL 10 MEQ TAB PO ONE (00:45)
[2017-12-16] MEDS: SODIUM BICARBONATE 150 MEQ in D5W 1,000 ML IV SCH ×2 (00:59→07:51)
[2017-12-16] MEDS: PROMETHAZINE HCL 25 MG/ML INJ IVP PRN ×2 (01:03→16:14)
--- NOTE | 2017-12-16 02:18 | PDMN ---
Medical Necessity Medical necessity: C/M review: Patient meets INPT criteria per MCG M-153 Drug ingestion or overdose: Acute suicide attempt via aspirin ingestion (80 325 mg ASA taken), acute suicidality, nausea, abdominal pain, significant tinnitus, salicylate level 51, Cr 1.1, CO2 21, anion gap 18, requiring Nephrology consult , ongoing IV Sodium bicarb infusion, IV Phenergan, IV Zofran, frequent lab monitoring, M1 hold, cardiac monitoring, hemodynamic monitoring in ICU, comorbid bipolar depression, major depressive disorder with PTSD, obsessive- compulsive traits, history of migraine headaches, hypothyroidism. MD anticipates > 2 MN LOS for ongoing med nec for eval and TX of above.
[2017-12-16] MEDS: POTASSIUM Cl (KCl) 10 MEQ in D5W 100 ML IV SCH ×2 (03:01→04:01)
[2017-12-16] MEDS ORDERED: POTASSIUM CL 20 MEQ TAB PO ONE (10:27)
[2017-12-16] MEDS ORDERED: hydrOXYzine HCL 25 MG TAB PO PRN (10:28)
--- NOTE | 2017-12-16 10:56 | HOSPPROG ---
Hospitalist Progress Note Assessment/Plan: # asa overdose - level normal, stop bicarb gtt - medically cleared # suicide attempt - needs MHP eval # depression, PTSD, obsessive compulsion disorder - cont latuda, lamictal, wellbutrin Subjective: still with tinitus Objective: Vital Signs Temp Pulse Resp BP Pulse Ox 36.9 C 76 15 101/63 95 12/16/17 01:00 12/16/17 10:00 12/16/17 10:00 12/16/17 10:00 12/16/17 10:00 Laboratory Results 12/16/17 07:37 12/15/17 12/16/17 12/17/17 05:59 05:59 05:59 Intake Total 2350 Output Total 1050 Balance 1300 PT 12.6 SEC (12.0-15.0) 12/15/17 19:01 INR 0.92 (0.83-1.16) 12/15/17 19:01 - Time Spent With Patient Time Spent with Patient: greater than 35 minutes Time Spent with Patient: Greater than 35 minutes spent on this patients care, greater than 50% of time spent counseling, educating, and coordinating care regarding the above mentioned plan. - Physical Exam Constitutional: no apparent distress, appears nourished ICD10 Worksheet Patient Problems: Problems Problem Status Onset Drug overdose, intentional Acute Aspirin overdose Acute Posttraumatic stress disorder Acute Borderline personality disorder Acute Bipolar 2 disorder, major depressive episode Acute Suicidal ideation Acute Laceration Acute
[2017-12-16] MEDS ORDERED: ACETAMINOPHEN 325 MG TAB PO PRN (11:21)
[2017-12-16] MEDS: lamoTRIgine 25 MG TAB PO SCH (12:15)
[2017-12-16] MEDS: LURASIDONE HCL 40 MG TAB PO SCH (12:15)
[2017-12-16] MEDS: traMADol 50 MG TAB PO PRN ×2 (12:16→19:47)
[2017-12-16] MEDS: ONDANSETRON 4 MG/2 ML VIAL IVP PRN ×2 (13:09→19:47)
--- NOTE | 2017-12-16 13:24 | GCON ---
[f rep st] CONSULTATION DATE OF CONSULTATION: 12/16/2017 REASON FOR CONSULTATION: Opinion regarding aspirin intoxication. HISTORY OF PRESENT ILLNESS: The patient is a very pleasant 27-year-old female with history of bipolar and depression. She had her sister recently move out of her home. The patient became quite depressed, although we are not certain if that was the stimulus. She did purchase a new bottle of 325 mg aspirin, 80 tablets and consumed the entire container last night. Shortly after she consumed all 80 tablets, she thought better of it and came to the emergency department. In the emergency department, she was noted to have a salicylate level of 51.9 and a serum creatinine of 1.1. She was initiated on alkalinization intravenously after having contact with the Poison Control Center. She was moved to the intensive care unit for further evaluation and management. Over the course of the next 8-10 hours, her serum creatinine, which was 1.1 on admission, decreased down to 0.9 and has been at 0.9. Her salicylate level was 51.9 on admission, followed by 35.5, 27.8, 22.2, and most recently 17.6. Psychiatry has been consulted, and she is being evaluated currently. Priscila denies having had any fevers, chills, nausea, vomiting, chest pain, shortness of breath, cough, sputum, hemoptysis, diarrhea, melena, hematochezia, diminished urine output, gross hematuria or dysuria. PAST MEDICAL HISTORY: Significant for: 1. Bipolar disorder. 2. Migraine headaches. 3. Depression. 4. PTSD. 5. Hypothyroidism. 6. Status post tonsillectomy and adenoidectomy. HOME MEDICATIONS: Include Lamictal 25 mg a day, hydroxyzine 25 mg p.r.n., Wellbutrin 150 mg a day, and lurasidone 40 mg a day. ALLERGIES: To pollen and Bee stings FAMILY HISTORY: Positive for cancer, hypertension, depression and bipolar disease. SOCIAL HISTORY: She is not . She lives alone. She does smoke some marijuana. Does not use tobacco, alcohol, or other recreational drugs. REVIEW OF SYSTEMS: A complete 12-point review of systems was performed with pertinent positives and negatives as per the previous sections. PHYSICAL EXAMINATION: VITAL SIGNS: Blood pressure 101/63, pulse 76, respirations 15, temperature 36.9. Urine output 750 cc so far today. GENERAL: She is awake, alert, cooperative, is in no distress. HEENT: Pupils are reactive to light. Extraocular movements are intact. Mucous membranes are moist. NECK: No lymphadenopathy, thyromegaly, or JVD. HEART: Regular. No rub. No S3. LUNGS: No rales, rhonchi, or wheezes. ABDOMEN: Flat. Bowel sounds are positive. Soft, nontender, nondistended. EXTREMITIES: No edema, cyanosis, or clubbing. NEUROLOGIC: No asterixis. SKIN: No unusual rashes or lesions. LYMPH: No palpable lymphadenopathy or lymphedema. MUSCULOSKELETAL: No effusions or tenderness. LABORATORY: Most recent ABG showed a pH of 7.46, pCO2 of 40, PO2 of 77. WBC 13.5, hemoglobin 16.7, hematocrit 48, platelet count 331,000. INR of 0.92. Serum sodium was 140, potassium 3.1, chloride 105, CO2 of 25, BUN 10, creatinine 0.9, glucose 93, calcium 7.5. Urinalysis specific gravity of 1.021, pH 7, +2 protein, negative blood. Beta HCG was negative. Urine was positive for marijuana. IMPRESSION: 1. Salicylate intoxication in the course of suicide attempt. 2. Suicide attempt. 3. Depression. 4. Bipolar. RECOMMENDATIONS: 1. The patient has been on an intravenous sodium bicarbonate drip since last night. Her salicylate level is clearly moving in the right direction. It is now normal. 2. Agree that she needs to have a psychiatric evaluation; that is in progress. 3. Continue her other therapies. Thank you for allowing me to participate in the care of your patient. If there is any questions, please do not hesitate to contact us. We will be following along with. /[id number]/MODL MTDD
--- NOTE | 2017-12-16 16:36 | ASMTCMCOM ---
CM Note CM Note Notes: Pt was admitted on an M1 hold for an aspirin overdose. She has a hx of Bipolar d/o, PTSD, depression. She was medically cleared and [facility] contacted for psych eval. Pt is followed by P so [facility] contacted [facility] for evaluation. P car painter here, has seen pt and is looking for placement for her. Date Signed: 12/16/2017 04:36 PM Electronically Signed By:DILLON Ryan
--- NOTE | 2017-12-16 17:45 | PDIAF ---
- Diagnosis Diagnosis: suicide attempt; aspirin overdose Code Status: Full Code - Medication Management Discharge Medications: Medications to Continue on Transfer traZODone [traZODONE 100MG (*)] 100 mg PO HS #30 tab 08/08/17 [Last Taken ] Lurasidone HCl [Latuda] 40 mg PO DAILY@0800 12/15/17 [Last Taken Unknown] buPROPion XL [Wellbutrin 150mg XL] 150 mg PO DAILY@20 12/15/17 [Last Taken 12/14] hydrOXYzine HCL [hydrOXYzine HCL (RX)] 25 mg PO Q6H PRN 12/15/17 [Last Taken ] lamoTRIgine [LaMICtal] 25 mg PO DAILY 12/15/17 [Last Taken Unknown] Discharge Medications: Refer to the Discharge Home Medication list for PRN reason. - Orders Diet Recommendation: no restrictions on diet - Follow Up Care Current Providers and Referrals: Patient,NotPresent [Unknown] - As per Instructions
[2017-12-16] MEDS: ACETAMINOPHEN 500 MG TAB PO PRN (18:46)
[2017-12-16] MEDS ORDERED: buPROPion XL 150 MG TAB PO SCH (20:00)
[2017-12-16] MEDS ORDERED: traZODone 100 MG TAB PO SCH (21:00)
[2017-12-17 04:34] VITALS: RESP 15; O2SAT 94
[2017-12-17 06:30] VITALS: PULSE 80
[2017-12-17] MEDS ORDERED: FAMOTIDINE 20 MG TAB PO SCH (09:00)
[2017-12-17 09:16] VITALS: BP 112/75; TEMP 98.6
[2017-12-17] MEDS: lamoTRIgine 25 MG TAB PO SCH (09:35)
[2017-12-17] MEDS: LURASIDONE HCL 40 MG TAB PO SCH (09:35)
[2017-12-17] MEDS: ACETAMINOPHEN 500 MG TAB PO PRN (10:52)
--- NOTE | 2017-12-17 11:48 | SOAPPROG ---
SOAP Progress Note Assessment/Plan: Assessment: Salicylate intentional overdose, resolved bipolar, on therapy depression/suicide attempt, transfer underway to rehab Plan: to psych/rehab hospital today 12/17/17 11:45 Subjective: feels better today no cp sob nausea or vomiting rested spirits good Objective: Vital Signs Temp Pulse Resp BP Pulse Ox 37.0 C 80 15 112/75 94 12/17/17 09:11 12/17/17 06:00 12/17/17 04:00 12/17/17 09:11 12/17/17 09:11 Laboratory Results 12/17/17 05:20 12/16/17 12/17/17 12/18/17 05:59 05:59 05:59 Intake Total 2350 5 Output Total 1050 Balance 1300 2024 PT 12.6 SEC (12.0-15.0) 12/15/17 19:01 INR 0.92 (0.83-1.16) 12/15/17 19:01 Physical Exam - Physical Exam General Appearance: alert Respiratory: lungs clear, No rhonchi, No wheezing Cardiac/Chest: regular rate, rhythm, No edema, No friction rub Abdomen: normal bowel sounds, non-tender, soft Skin: normal color, warm/dry Extremities: No pedal edema Neuro/Psych: alert, oriented x 3 ICD10 Worksheet Patient Problems: Problems Problem Status Onset Aspirin overdose Acute Bipolar 2 disorder, major depressive episode Acute Borderline personality disorder Acute Drug overdose, intentional Acute Laceration Acute Posttraumatic stress disorder Acute Suicidal ideation Acute
--- NOTE | 2017-12-17 12:07 | GDS ---
[f rep st] DISCHARGE SUMMARY FINAL DIAGNOSES: 1. Aspirin overdose. 2. Suicide attempt. 3. Depression. 4. Post-traumatic stress disorder. 5. Obsessive-compulsive traits. HOSPITAL COURSE: A 27-year-old female with a suicide attempt with an aspirin overdose. She was init ially acidotic with a bicarb of 21, an anion gap of 18, and an aspirin level of 51.9. She was treate d with a bicarbonate drip. Her aspirin level normalized overnight. The last check was 12.7. She blanco d been taken off the bicarbonate drip. She has been medically cleared. She has been excepted to [address] for ongoing stabilization. She will be transferred over today. The accepting physician is Dr. Blanc. BILLING: I spent more than 30 minutes on the day of discharge coordinating care. /[id number]/MODL
--- NOTE | 2017-12-18 00:21 | BAPA ---
[f rep st] ADMISSION PSYCHIATRIC ASSESSMENT CHIEF COMPLAINT: "I was doing really well until weekend... " HISTORY OF PRESENT ILLNESS: Patient is a 27-year-old R[place]andan female INCOMPLETE DICTATION /[id number]/MODL
== END 2017-12-17 11:38 | DRG 918 ==
LOC: EDUNIT# → F2N 20:38
PROVIDERS: ADMIT Internal Medicine; ATTEND Student in an Organized Health Care Education/Training Program
DX: T39.012A Poisoning by aspirin, intentional self-harm, initial encounter (principal); Z91.5 Personal history of self-harm; F31.9 Bipolar disorder, unspecified; F43.10 Post-traumatic stress disorder, unspecified; F42.9 Obsessive-compulsive disorder, unspecified; R10.84 Generalized abdominal pain; R11.0 Nausea; Z81.8 Family history of other mental and behavioral disorders; E03.9 Hypothyroidism, unspecified; H93.13 Tinnitus, bilateral; G43.909 Migraine, unspecified, not intractable, without status migrainosus
CPT/HCPCS: 80305; 96374; G0480; J2405; J2550; J3480

== ENCOUNTER 2017-12-17 12:00 | Inpatient (IN) | payer OTHER ==
[2017-12-17] MEDS ORDERED: MAG HYDROX/AL HYDROX/SIMETH 30 ML UDCUP PO PRN (12:43)
[2017-12-17] MEDS ORDERED: ACETAMINOPHEN 325 MG TAB PO PRN (12:43)
[2017-12-17] MEDS ORDERED: MAGNESIUM HYDROXIDE 30 ML UDCUP PO PRN (12:43)
[2017-12-17] MEDS ORDERED: SUMAtriptan 50 MG TAB PO PRN (12:51)
[2017-12-17] MEDS: LORazepam 0.5 MG TAB PO PRN (22:09)
[2017-12-17] MEDS: traZODone 100 MG TAB PO SCH (22:09)
[2017-12-17] MEDS: lamoTRIgine 25 MG TAB PO SCH (22:09)
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
[2017-12-18] MEDS ORDERED: buPROPion XL 150 MG TAB PO SCH (09:00)
[2017-12-18] MEDS: LORazepam 0.5 MG TAB PO PRN (09:50)
[2017-12-18] MEDS ORDERED: hydrOXYzine HCL 25 MG TAB PO PRN (12:10)
--- NOTE | 2017-12-18 13:14 | BCON ---
[f rep st] BEHAVIORAL HEALTH CONSULTATION INTERNAL MEDICINE CONSULTATION DATE OF CONSULTATION: 12/18/2017 REFERRING PHYSICIAN: Stephanie Blanc MD REASON FOR REFERRAL: Medical clearance for inpatient behavioral health stay. HISTORY OF PRESENT ILLNESS: This patient was brought to the [facility] Emergency Department on 12/15/2017, after she had texted a friend informing her that she was taking an aspirin overdose in an attempt to commit suicide. She was evaluated in the emergency department and admitted to the ICU , where she was placed on a bicarbonate drip. Aspirin levels were followed until she was no longer toxic. She was evaluated by Psychiatry and then transferred to Inpatient Behavioral Health for continued psychiatric care. She currently is without any acute complaints. PAST MEDICAL HISTORY: 1. Mental health issues with diagnoses including bipolar disorder and borderline personality disorder. 2. History of kidney stones. PAST SURGICAL HISTORY: She reports she has had wisdom teeth extractions, and she has had a D and C after a miscarriage. MEDICATIONS: Prior to admission: 1. Lurasidone 40 mg p.o. daily. 2. Trazodone 100 mg p.o. at bedtime. 3. Lamotrigine 25 mg p.o. daily. 4. Hydroxyzine 50 mg p.o. q.6 hours p.r.n. 5. Bupropion XL 150 mg p.o. daily at 8 p.m. ALLERGIES: Environmental allergies: Bee venom and grass pollen. SOCIAL HISTORY: She lives in an apartment. 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 She is a nonsmoker. She uses marijuana. She is originally from [place]. FAMILY HISTORY: There is a significant family history of mental illness, substance abuse, and suicidality. REVIEW OF SYSTEMS: She has approximately 10 kg weight gain documented in the chart over the past year. She denies fevers or chills, heat or cold intolerance , sweats. She is not in pain. She denies cough or dyspnea. She denies palpitations or chest pain. Otherwise, a 10-point review of systems is negative. PHYSICAL EXAM: VITAL SIGNS: Blood pressure is 115/60, heart rate is 60, respiratory rate is 14, oxygen saturation is 97% on room air. Temperature is 36.6 degrees centigrade. Her weight is 81.6 kg for a body mass index of 26.6. GENERAL: This is a mildly overweight appearing woman, appears her chronologic age, cooperative and in no acute distress. HEENT: Extraocular movements are intact. Pupils are equal, round, reactive to light. Mucous membranes are moist. Dentition is in good condition. She has an uncrowded airway, Mallampati class 1. NECK: Supple. HEART: Regular rate and rhythm with no murmurs, rubs, or gallops. LUNGS: Clear to auscultation bilaterally. ABDOMEN : Benign. EXTREMITIES: There is no cyanosis, clubbing, or edema. NEUROLOGIC : She is alert and oriented x3. Cranial nerves 2-12 are grossly intact. There is no focal weakness. Sensation is intact to light touch. Gait is within normal limits. LABORATORY STUDIES: From her hospitalization, CBC showed an elevated white count at 13.54, there was no left shift. She was somewhat hemoconcentrated with a mildly elevated hemoglobin and hematocrit at 16.7 and 57.6. Platelet count was normal. Coagulation studies revealed normal PT and INR. Blood gas showed alkalosis due to her bicarbonate drip. Serum chemistry initially showed an anion gap of 18, carbon dioxide was slightly low at 21, creatinine was slightly elevated at 1.1, phosphorus was elevated at 4.7; otherwise, renal function, electrolytes and liver function tests were within normal limits. TSH was normal at 4.45. Beta hCG was negative for . She subsequently, with hydration, developed hypokalemia, which resolved as did the anion gap, and she had a slightly low carbon dioxide yesterday at 21. Urinalysis showed some protein and otherwise was overall within normal limits. Toxicology screen in the serum was initially significant for an elevated salicylate level at 51.9, which later on normalized and on 12/16/2016, salicylate level was nontoxic at 12.7. Urine drug screen was non-negative for marijuana but otherwise negative for substances of abuse. Acetaminophen level in the serum was negative, as was ethyl alcohol. ASSESSMENT AND RECOMMENDATIONS: 1. Mental health issues, pending further evaluation and management per Psychiatry and the mental health team. 2. Aspirin overdose, effectively treated with a sodium bicarbonate drip and she is nontoxic at this point. 3. Weight gain. Normal thyroid studies. Consider avoiding medications which might cause further weight gain though psychosocial stabilization is 1st priority at present. I see no medical contraindications to this patient's continued stay in the inpatient behavioral health unit or to any psychiatric medications or procedures. Thank you very much for including me in the care of this patient. Please do not hesitate to contact me or the hospitalist service should there be need for further medical evaluation. /[id number]/MODL MTDD
[2017-12-18] MEDS ORDERED: LURASIDONE HCL 40 MG TAB PO ONE ×2 (13:44→17:30)
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
[2017-12-18] MEDS ORDERED: LEVOTHYROXINE 25 MCG TAB PO SCH (14:45)
[2017-12-18] MEDS ORDERED: GABAPENTIN 300 MG CAP PO PRN (15:02)
[2017-12-18] MEDS ORDERED: hydrOXYzine HCL 25 MG TAB PO ONE (18:15)
[2017-12-18] MEDS: buPROPion SR 150 MG TAB PO SCH (21:26)
[2017-12-18] MEDS: lamoTRIgine 25 MG TAB PO SCH (21:26)
[2017-12-18] MEDS: FAMOTIDINE 20 MG TAB PO SCH (21:26)
[2017-12-18] MEDS: traZODone 100 MG TAB PO SCH (21:27)
[2017-12-18] MEDS: LURASIDONE HCL 40 MG TAB PO SCH (21:27)
[2017-12-19] MEDS: buPROPion SR 150 MG TAB PO SCH ×2 (08:14→20:40)
[2017-12-19] MEDS: LURASIDONE HCL 40 MG TAB PO SCH ×2 (08:15→20:40)
[2017-12-19] MEDS: FAMOTIDINE 20 MG TAB PO SCH ×2 (08:15→20:40)
[2017-12-19] MEDS: hydrOXYzine HCL 50 MG TAB PO PRN ×2 (08:30→20:36)
[2017-12-19] MEDS ORDERED: LEVOTHYROXINE 25 MCG TAB PO SCH (10:00)
[2017-12-19] MEDS ORDERED: GABAPENTIN 300 MG CAP PO PRN (13:25)
[2017-12-19] MEDS ORDERED: GABAPENTIN 300 MG CAP PO ONE (13:25)
--- NOTE | 2017-12-19 13:38 | SOAPPROG ---
SOAP Progress Note Assessment/Plan: Assessment: Bipolar Disorder type II, depressed Borderline Personality Disorder History of PTSD Housing and financial stressors Patient impulsively overdosed on Aspirin after a trauma-focussed therapy session. Patient appears more calm and appropriate. Patient has a history of multiple episodes of self harm in past year. Patient had SI yesterday but denies SI today contingent on clear housing plan for the future. Plan: Short Term Certification Education about diagnoses Continue Trazodone 100mg QHS Continue Wellbutrin 150mg BID Continue Synthroid 25mcg/daily for borderline hypothyroidism Continue Latuda 40mg BID Discontinue low dose Lamictal Hydroxyzine 50mg PRN severe anxiety Discussed risk of defects, miscarriage with psychiatric medications Supportive therapy regarding stressors Discussed safety plan (using coping skills to manage anxiety and talking to supports if having thoughts of self-harm) Monitor mood stability and risk of self-harm 12/19/17 13:50 Subjective: CC: 'better but anxious about what is going to happen.' Patient reports sleeping well. Reports yesterday having suicidal thoughts, feeling overwhelmed regarding housing. Reports her rent is paid thru the end of the month but only has money for 2 weeks after that. Reports using money from an HSA account for her therapy copayments and medication copayments this year but this will run out next month. Reports 2 weeks of Latuda 40mg tablet sample pack at home. Reports boyfrienpiero is staying in apartment and caring for dog. Reports today feeling more hopeful that she will be able to find more affordable housing after discharge. Reports goal is to discharge tomorrow and attend psychotherapy appointment tomorrow afternoon. Reports boyfriend is supportive and will allow her to stay with him for short term but dog not allowed in his apartment. Reports financial stress due to spending money to visit mother in [place] in September. Denies stiffness or slowing from Latuda. Reports no plan/intent to harm herself but reports fear that she may self-harm if homeless in the future. Objective: Vital Signs Temp Pulse Resp BP Pulse Ox 36.6 C 59 L 15 111/57 L 96 12/19/17 06:00 12/19/17 06:00 12/19/17 06:00 12/19/17 06:00 12/19/17 06:00 Alert WF with glasses. Ambulatory without tremors. Affect restricted. Mood ' better but anxious about what is going to happen.' Thoughts organized. Denies SI or HI or AH. Reports fear of self harm if homeless only. No evident delusions. Improved/fair insight. Judgment questionable. Staff report patient compliant with Latuda last night and this AM, slept 9 hours overnight. Calm and appearing euthymic during visit today with boyfriend. Reported yesterday having suicidal thoughts. - Time Spent With Patient Time Spent With Patient: 40 minutes - Pending Discharge Pending Discharge Within 24 Hours: Yes Pending Discharge Within 48 Hours: No Pending Discharge Date: 12/20/17 Pending Discharge Time: 11:00 ICD10 Worksheet Patient Problems: Problems Problem Status Onset Aspirin overdose Acute Bipolar 2 disorder, major depressive episode Acute Borderline personality disorder Acute Drug overdose, intentional Acute Laceration Acute Posttraumatic stress disorder Acute Suicidal ideation Acute
[2017-12-19] MEDS: traZODone 100 MG TAB PO SCH (20:40)
[2017-12-20 06:57] VITALS: BP 108/58; PULSE 57; RESP 16; TEMP 97.7; O2SAT 95
[2017-12-20] MEDS: FAMOTIDINE 20 MG TAB PO SCH (08:44)
[2017-12-20] MEDS: LURASIDONE HCL 40 MG TAB PO SCH (08:45)
[2017-12-20] MEDS: buPROPion SR 150 MG TAB PO SCH (08:45)
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
== END 2017-12-20 10:00 | disposition home or self-care (01) | DRG 885 ==
LOC: BBEH 12:00
PROVIDERS: ADMIT Psychiatry & Neurology Behavioral Neurology & Neuropsychiatry; ATTEND Psychiatry & Neurology Behavioral Neurology & Neuropsychiatry
DX: F31.9 Bipolar disorder, unspecified (principal); F60.9 Personality disorder, unspecified; F43.10 Post-traumatic stress disorder, unspecified; E03.9 Hypothyroidism, unspecified; F12.90 Cannabis use, unspecified, uncomplicated; R63.5 Abnormal weight gain; Z87.442 Personal history of urinary calculi; Z59.8 Other problems related to housing and economic circumstances; Z63.8 Other specified problems related to primary support group; Z91.419 Personal history of unspecified adult abuse